=== PATIENT | female | born 1935 | race Caucasian/White ===

== ENCOUNTER 2019-05-06 08:49 | Inpatient (IN) | payer MEDICARE, SELFPAY ==
[2019-05-06] VITALS (11 sets, daily range): BP systolic 98–133; BP diastolic 46–68; PULSE 59–85; RESP 16–20; TEMP 36.5–37.6; O2SAT 78–99
--- NOTE | 2019-05-06 08:51 | ED_ITS ---
Entered by Brian Morrell, acting as scribe for Cristina Monroy DO HPI - General Adult General: Chief complaint: Shortness of Breath/Dyspnea Stated complaint: Short of breath Time Seen by Provider: 05/06/19 09:20 History of Present Illness: HPI narrative: 83 yo female presents shortness of breath. Pt states that she has had a low grade fever start this morning. Daughter states that pt just started all of these symptoms this morning. pt is normally on 2 liters of o2 at all times. Pt didn't have any o2 in the car on the way to the hospital. Pt states that she slept most of the day yesteday. Pt states that her hips are achey. MD complaint: shortness of breath. Onset (ago): day(s) Radiation: non-radiation Severity: mild Relieving factors: none Exacerbating factors: none Associated symptoms: Reports cough, dyspnea, fevers/chills and malaise; Deny chest pain, headache(s), nausea, rash, palpitations, syncope or vomiting Treatments prior to arrival: none Review of Systems Const: Reports: fever, chills, body aches, change in appetite, fatigue and malaise Eyes: Denies: change in vision, blurry vision, blind spots, photophobia, eye discomfort, eye discharge, eye redness, yellow eyes or dry eyes ENMT: Denies: throat pain, uvular edema, enlarged tonsils, painful swallowing, hoarseness, mouth pain, swelling of lips/tongue, oral sores/lesions, dental pain, dry mouth, bad breath or ear pain Card: Denies: chest pain, palpitations, irregular heart rhythm, edema, swelling of feet/ankles, lightheadedness, syncope, pre-syncope, shortness of breath on exertion or shortness of breath when lying down Resp: Reports: shortness of breath and non-productive cough GI: Denies: abdominal pain, nausea, vomiting, vomiting blood, coffee grounds in vomit, difficulty swallowing or heartburn/indigestion : Denies: flank pain, difficulty urinating, painful urination, urinary frequency, urinary urgency, urinary hesitancy or urinary dribbling Musc: Denies: neck pain, back pain, extremity pain or extremity swelling Skin/Breast: Denies: rash, itching, redness, sensitivity to light, skin pain, skin tenderness, skin swelling, sores, new lesion, changing lesion or chronic lesion Neuro: Denies: headache, numbness in extremities, weakness in extremities, changes in sensation, lack of coordination or difficulty walking Psych: Reports: panic attacks; Denies: anxiety, depression, mood swings, sleeping less, sleeping more, hopelessness or loss of interest Endo: Denies: excessive urination Víctor/Lymph: Denies: easy bruising, easy bleeding, petechiae, purpura or tender lymph nodes All/Imm: Denies: hives, throat swelling, tongue swelling, facial swelling or acute wheezing PFSH ED PFSH: Statuses (acute, chronic, etc) shown below reflect problem list status as previously entered and may not be historically accurate Medical History Anxiety (Chronic) Aortic stenosis (Acute) Atrial fibrillation (Acute) Cardiomyopathy (Acute) Chronic back pain (Chronic) CKD (chronic kidney disease), stage IV (Chronic) Congestive heart disease (Acute) ICD (implantable cardioverter-defibrillator) in place (Acute) Macular degeneration (Chronic) Mitral stenosis (Acute) SSS (sick sinus syndrome) (Acute) Surgical History H/O: hysterectomy (Acute) S/P cardiac pacemaker procedure (Acute) S/P cataract surgery (Acute) S/P hernia repair (Acute) S/P small bowel resection (Acute) Status post total knee replacement, right (Acute) Family History Other CAD (coronary artery disease) Cancer Hypertension Stroke Thyroid condition Social History Smoking and tobacco status: never smoked Alcohol intake: former Lives independently: No Household members: children Marital status: / Physical Exam Const: COMMON NORMALS: alert ORIENTATION/CONSCIOUSNESS: Yes oriented to person and Yes oriented to place HENMT: COMMON NORMALS: oral mucous membranes not moist THROAT: no uvular edema Eye: COMMON NORMALS: PERRL GENERAL EYE: normal appearance of both eyes PUPIL: Yes PERRL Lymph: LYMPHATIC: no lymphadenopathy noted Chest: CHEST: No abnormal inspection of the chest Resp: COMMON NORMALS: clear to auscultation bilaterally EFFORT & INSPECTION: Yes able to speak in complete sentences AUSCULTATION: clear to auscultation bilaterally GI: COMMON NORMALS: soft to palpation INSPECTION: Yes normal to inspection PALPATION: Yes soft Neuro: SENSORIUM/ORIENTATION: Yes alert, Yes oriented to person and Yes oriented to place SPEECH: speech normal GAIT: Yes normal gait Course Reevaluation(s): Reevaluation #1: Patient oxygen sat had improved after nebulizer, patient and daughter notifed of lab and cxr results. Patient receiving antibiotic Time: 10:15 Consultations: Consultation #1: Dr Chávez Time: 10:27 Vital Signs: Vital signs: Vital Signs Temperature 99.6 F 05/06/19 08:54 Pulse Rate 69 05/06/19 09:40 Respiratory Rate 18 05/06/19 09:35 Blood Pressure 98/46 05/06/19 09:07 Pulse Oximetry 91 05/06/19 09:35 MDM - General Adult MDM Narrative: Medical decision making narrative: Patient was interviewed with daughter present who acts as caregiver. Patient awoke with fever and didn't sleep well, concerned that she had the flu. She took tylenol prior to arrival. She was hypoxic upon arrival. her portable oxygen was out, she was administered a duoneb and started on oxygen, her sats have been in the 94% range which is normal for her. She wears oxygen 18/10. Her daughter states her mentation is not as keen as normal. Her cbc has an elevated wbc, her cxr shows chf with possible pneumonia and her influenza A is positive. Patient was administered Rocephin 1 G in the ER, her blood cultures were drawn prior to antibiotics. Dr Chávez was consulted Differential Diagnosis: Differential Diagnosis: Pneumonia, Influenza, congestive heart failure Lab Data: Labs: Lab Results 05/06/19 05/06/19 05/06/19 Range/Units 09:03 09:03 09:08 WBC 16.4 H (4.0-10.0) 10^3/ uL RBC 3.50 L (4.1-5.3) 10^6/u L Hgb 11.0 L (11.5-15.3) g/dL Hct 35.2 L (37.0-47.0) % MCV 100.6 H (81-99) fL MCH 31.4 (28.0-34.0) pg MCHC 31.3 (30.0-36.0) g/dL RDW 13.6 (12.1-15.1) % Plt Count 260 (130-400) 10^3/c mm MPV 10.8 H (7.4-10.4) fL Neut % (Auto) 87.6 % Lymph % (Auto) 6.3 % Lee % (Auto) 4.8 % Eos % (Auto) 0.5 % Baso % (Auto) 0.4 % Neut # (Auto) 14.4 H (1.8-7.7) 10^3/u L Lymph # (Auto) 1.0 (0.8-4.8) 10^3/u L Lee # (Auto) 0.8 (0.2-0.9) 10^3/u L Eos # (Auto) 0.1 (0.0-0.8) 10^3/u L Baso # (Auto) 0.1 (0.0-0.1) 10^3/u L Nucleated RBC % (a uto) 0 % Nucleated RBCs # 0.0 /100WBC Sodium 142 (136-145) mmol/L Potassium 3.7 (3.5-5.1) mmol/L Chloride 98 (98-107) mmol/L Carbon Dioxide 32 H (22-29) mmol/L Anion Gap 15.7 (5-19) BUN 28 H (8-23) mg/dL Creatinine 1.6 H (0.5-0.9) mg/dL Glucose 128 H (65-115) mg/dL Calcium 9.3 (8.5-10.5) mg/dL Magnesium 1.8 (1.7-2.3) mg/dL Total Bilirubin 0.9 (0.15-1.2) mg/dL AST 153 H (0-32) U/L ALT 79 H (0-33) U/L Alkaline Phosphata se 152 H (35-105) IU/L NT-Pro-B Natriuret Pep 4459 H (0-450) pg/mL Total Protein 6.8 (6.6-8.7) g/dL Albumin 2.9 L (3.5-5.2) g/dL Globulin 3.9 (1.3-4.6) g/dL Influenza Type A A g Positive H (Negative) POC Influenza B Ag Negative (Negative) Discharge Plan Discharge Patient Disposition: Admitted As Inpatient Condition: Stable Referrals: Dwight Glass MD [Family Provider] - Alexandra Pabon DO [Primary Care Provider] - Coding Level of Care Code ED Printing Pressman for Chg Fwd The documentation recorded by the Petros schmitz Kialy, accurately reflects the service I personally performed and the decisions made by , Cristina Monroy DO
--- NOTE | 2019-05-06 09:00 | XR_ITS ---
WS: [id number] ONE VIEW CHEST HISTORY: 83 years old Female with dyspnea AP upright chest no comparison FINDINGS: Small left and [id number] right pleural effusions. Right greater than left lower lung zone inc reased parenchymal opacity. No pneumothorax. Cardiomegaly and/or pericardial effusion. Pulmonary vasc ular markings unremarkable. Thoracic aorta atherosclerosis. Left chest multi lead cardiac pacing/AICD . Advanced bilateral glenohumeral joint arthrosis. No subdiaphragmatic free air. XR/XR chest 1V portable [id number] IMPRESSION: Findings suggestive of acute CHF/fluid overload. Superimposed bibasilar pneumon ia not excluded. Suggest short-term follow-up PA and lateral chest to confirm r esolution.
[2019-05-06 09:19] LABS: Basophils # 0.1 10^3/uL (0.0-0.1); Basophils % 0.4 %; Eosinophils # 0.1 10^3/uL (0.0-0.8); Eosinophils % 0.5 %; Hematocrit 35.2 % (37.0-47.0); Lymphocytes % 6.3 %; Mean Corpuscular HGB Conc 31.3 g/dL (30.0-36.0); Mean Corpuscular Hemoglobin 31.4 pg (28.0-34.0); Mean Corpuscular Volume 100.6 fL (81-99); Mean Platelet Volume 10.8 fL (7.4-10.4); Monocytes # 0.8 10^3/uL (0.2-0.9); Monocytes % 4.8 %; Neutrophils # 14.4 10^3/uL (1.8-7.7); Neutrophils % 87.6 %; Nucleated Red Blood Cells % 0 %; Platelet Count 260 10^3/cmm (130-400); Red Cell Distribution Width 13.6 % (12.1-15.1); White Blood Count 16.4 10^3/uL (4.0-10.0)
[2019-05-06] MEDS: ipratropium-albuterol 3 mL Neb INHALATION ×2 (09:34→19:49)
[2019-05-06 09:47] LABS: Alanine Aminotransferase 79 U/L (0-33); Albumin Level 2.9 g/dL (3.5-5.2); Alkaline Phosphatase 152 IU/L (35-105); Anion Gap 15.7 (5-19); Aspartate Amino Transferase 153 U/L (0-32); Blood Urea Nitrogen 28 mg/dL (8-23); Calcium 9.3 mg/dL (8.5-10.5); Carbon Dioxide 32 mmol/L (22-29); Chloride 98 mmol/L (98-107); Globulin 3.9 g/dL (1.3-4.6); Glucose 128 mg/dL (65-115); Magnesium 1.8 mg/dL (1.7-2.3); NT Pro B Type Natriuretic Pept 4459 pg/mL (0-450); Potassium 3.7 mmol/L (3.5-5.1); Sodium 142 mmol/L (136-145); Total Bilirubin 0.9 mg/dL (0.15-1.2); Total Protein 6.8 g/dL (6.6-8.7)
[2019-05-06] MEDS: cefTRIAXone 1,000 MG in sodium chloride 0.9% (plus) 50 ML 100 MG IV (09:59)
[2019-05-06] MEDS: sodium chloride 0.9% 500 ML 999 ML IV (09:59)
[2019-05-06 10:20] LABS: Influenza A by IFA Positive (Negative)
[2019-05-06 10:21] LABS: Influenza B by IFA Negative (Negative)
[2019-05-06] MEDS: oseltamivir phosphate 75 mg Capsule PO ×2 (10:39→17:56)
--- NOTE | 2019-05-06 11:30 | ED_ITS ---
HPI - SOB/Dyspnea General: Chief Complaint: Shortness of Breath/Dyspnea Stated Complaint: Short of breath Time Seen by Provider: 05/06/19 09:20 PFSH ED PFSH: Statuses (acute, chronic, etc) shown below reflect problem list status as previously entered and may not be historically accurate Medical History Anxiety (Chronic) Aortic stenosis (Acute) Atrial fibrillation (Acute) Cardiomyopathy (Acute) Chronic back pain (Chronic) CKD (chronic kidney disease), stage IV (Chronic) Congestive heart disease (Acute) ICD (implantable cardioverter-defibrillator) in place (Acute) Macular degeneration (Chronic) Mitral stenosis (Acute) SSS (sick sinus syndrome) (Acute) Surgical History H/O: hysterectomy (Acute) S/P cardiac pacemaker procedure (Acute) S/P cataract surgery (Acute) S/P hernia repair (Acute) S/P small bowel resection (Acute) Status post total knee replacement, right (Acute) Family History Other CAD (coronary artery disease) Cancer Hypertension Stroke Thyroid condition Social History Smoking and tobacco status: never smoked Alcohol intake: former Lives independently: No Household members: children Marital status: / Course Vital Signs: Vital signs: Vital Signs Temperature 99.6 F 05/06/19 08:54 Pulse Rate 69 05/06/19 09:40 Respiratory Rate 18 05/06/19 09:35 Blood Pressure 98/46 05/06/19 09:07 Pulse Oximetry 91 05/06/19 09:35 MDM - SOB/Dyspnea Lab Data: Labs: Lab Results 05/06/19 05/06/19 05/06/19 Range/Units 09:03 09:03 09:08 WBC 16.4 H (4.0-10.0) 10^3/ uL RBC 3.50 L (4.1-5.3) 10^6/u L Hgb 11.0 L (11.5-15.3) g/dL Hct 35.2 L (37.0-47.0) % MCV 100.6 H (81-99) fL MCH 31.4 (28.0-34.0) pg MCHC 31.3 (30.0-36.0) g/dL RDW 13.6 (12.1-15.1) % Plt Count 260 (130-400) 10^3/c mm MPV 10.8 H (7.4-10.4) fL Neut % (Auto) 87.6 % Lymph % (Auto) 6.3 % Pettis % (Auto) 4.8 % Eos % (Auto) 0.5 % Baso % (Auto) 0.4 % Neut # (Auto) 14.4 H (1.8-7.7) 10^3/u L Lymph # (Auto) 1.0 (0.8-4.8) 10^3/u L Pettis # (Auto) 0.8 (0.2-0.9) 10^3/u L Eos # (Auto) 0.1 (0.0-0.8) 10^3/u L Baso # (Auto) 0.1 (0.0-0.1) 10^3/u L Nucleated RBC % (a uto) 0 % Nucleated RBCs # 0.0 /100WBC Sodium 142 (136-145) mmol/L Potassium 3.7 (3.5-5.1) mmol/L Chloride 98 (98-107) mmol/L Carbon Dioxide 32 H (22-29) mmol/L Anion Gap 15.7 (5-19) BUN 28 H (8-23) mg/dL Creatinine 1.6 H (0.5-0.9) mg/dL Glucose 128 H (65-115) mg/dL Calcium 9.3 (8.5-10.5) mg/dL Magnesium 1.8 (1.7-2.3) mg/dL Total Bilirubin 0.9 (0.15-1.2) mg/dL AST 153 H (0-32) U/L ALT 79 H (0-33) U/L Alkaline Phosphata se 152 H (35-105) IU/L NT-Pro-B Natriuret Pep 4459 H (0-450) pg/mL Total Protein 6.8 (6.6-8.7) g/dL Albumin 2.9 L (3.5-5.2) g/dL Globulin 3.9 (1.3-4.6) g/dL Influenza Type A A g Positive H (Negative) POC Influenza B Ag Negative (Negative) Discharge Plan Discharge Patient Disposition: Admitted As Inpatient Condition: Stable Referrals: Dwight Glass MD [Family Provider] - Alexandra Pabon DO [Primary Care Provider] - Coding Level of Care Code ED Compensation And Benefits Advisor for Zohreh Lawson
[2019-05-06] MEDS: FUROsemide 10 mg/mL SDV 4mL 40 MG IVP (14:44)
--- NOTE | 2019-05-06 16:13 | ECG_ITS ---
Measurements Intervals [place] Rate: 69 P: -46 [place]: 165 QRS: 216 QRSD: 186 T: 3 QT: 509 QTc: 548 ELECTRONIC ATRIAL PACEMAKER ELECTRONIC VENTRICULAR PACEMAKER ABNORMAL RHYTHM ECG No previous ECG available for comparison Electronically Signed On 05-06-2019 22:25:51 LICENSING REPRESENTATIVE by Tona Contreras M.D. [email or web address]
--- NOTE | 2019-05-06 16:16 | P.HP_ITS ---
Providers/Chief Complaint Admitting Physician: Debra Chávez MD Primary Care Provider: Alexadnra Pabon DO Chief Complaint: Short of breath History of Present Illness Rosa Garcia is a 83 year old female with PMHx of Chronic CHF (unknown type), Cardiomyopathy s/p ACID, Chronic atrial fibrillation, HTN, Oxygen dependent COPD, WYATT, CKD stage 4; presents from home accompanied by her daughter for evaluation of acutely worsening shortness of breath, generalized weakness and fatigue for approximately 1 day. Patient recently moved in with her daughter was being her primary caregiver seems to be doing well until earlier this morning. Patient is oxygen dependent at baseline and uses 2 L as well as a CPAP machine at night. Daughter thinks that they may be something wrong with her portable oxygen and would like to have this checked as patient was quite short of breath this morning even with having her nasal cannula on. Patient's grandchildren and daughter have been ill with what sounds like an upper respiratory infection. Patient recently moved to the [facility] and has just established care with Dr. Pabon as her primary care provider and Dr. Tripp is a rotary cutter. I am unsure what kind of CHF she has as I do not have a baseline echo to reference though it is documented as diastolic failure. She also has chronic kidney disease stage IV the baseline creatinine is unclear. Patient typically ambulates with a walker at home and uses a wheelchair for lo nger distances. Patient's daughter states that she was so weak this morning she could not even ambulate. Upon evaluation in the ER she was found to have a white count of 16.4, hemoglobin of 11.0, BUN of 28, creatinine of 1.6, elevated LFTs, BNP of 4459. She was found to be influenza A positive. Chest x-ray shows evidence of fluid overload with possible superimposed bibasilar pneumonia. She received a dose of Tamiflu at my request as well as a dose of ceftriaxone and 40 mg of IV Lasix. Vital signs are stable, she is currently requiring 4 L nasal cannula. Patient's daughter at bedside during my assessment and able to provide collateral information, patient is a good historian. She is somewhat ill- appearing and quite frail. Patient and daughter deny any recent falls. Admission is requested for further treatment of pneumonia, influenza as well as IV diuresis. Review of Systems Const: Reports: fatigue; Denies: fever or chills Eyes: Denies: change in vision ENMT: Denies: painful swallowing or dry mouth Card: Denies: chest pain, swelling of feet/ankles or lightheadedness Resp: Reports: non-productive cough (very mild); Denies: shortness of breath GI: Denies: abdominal pain, nausea, vomiting, vomiting blood or blood in stool : Denies: difficulty urinating, painful urination or urinary frequency Musc: Denies: back pain Skin/Breast: Denies: rash Neuro: Reports: weakness in extremities and difficulty walking; Denies: numbness in extremities Psych: Denies: anxiety Medications/Allergies Home Medications Medication Instructions Recorded Confirmed Last Taken Type bumetanide 2 mg PO DAILY 05/06/19 05/06/19 05/06/19 History 6 mg Allergies Allergy/AdvReac Type Severity Reaction Status Date / Time No Known Allergies Allergy Verified 04/11/19 10:46 PFSH Acute PFSH: Statuses (acute, chronic, etc) shown below reflect problem list status as previously entered and may not be historically accurate Medical History Anxiety (Chronic) Aortic stenosis (Acute) Atrial fibrillation (Acute) Cardiomyopathy (Acute) Chronic back pain (Chronic) CKD (chronic kidney disease), stage IV (Chronic) Congestive heart disease (Acute) ICD (implantable cardioverter-defibrillator) in place (Acute) Macular degeneration (Chronic) Mitral stenosis (Acute) SSS (sick sinus syndrome) (Acute) Surgical History H/O: hysterectomy (Acute) S/P cardiac pacemaker procedure (Acute) S/P cataract surgery (Acute) S/P hernia repair (Acute) S/P small bowel resection (Acute) Status post total knee replacement, right (Acute) Family History Other CAD (coronary artery disease) Cancer Hypertension Stroke Thyroid condition Social History Smoking and tobacco status: never smoked Alcohol intake: former Lives independently: No Household members: children Marital status: / Vitals/I&O/Wt Last Vital Signs Temp 98.5 F 05/06/19 15:44 Pulse 69 05/06/19 15:44 Resp 16 05/06/19 15:44 BP 109/64 05/06/19 15:44 Pulse Ox 95 05/06/19 15:44 Physical Exam Const: COMMON NORMALS: no apparent distress and oriented x3 GENERAL APPEARANCE: cooperative, comfortable and frail appearing OR IENTATION/CONSCIOUSNESS: Yes awake OTHER: -somewhat ill appearing HENMT: COMMON NORMALS: normocephalic, head/scalp atraumatic, hearing grossly normal bilaterally and moist oral mucous membranes HEAD & SCALP: normocephalic and atraumatic Eye: COMMON NORMALS: PERRL, EOMs intact bilaterally and conjunctivae normal CONJUNCTIVA: Yes conjunctivae normal PUPIL: Yes PERRL Neck/C-Spine: COMMON NORMALS: full ROM GENERAL: Yes normal visual inspection and Yes trachea midline Resp: COMMON NORMALS: normal respiratory effort, no retractions, no use of accessory muscles and clear to auscultation bilaterally EFFORT & INSPECTION: Yes able to speak in complete sentences, Yes symmetric chest movement and No tachypneic AUSCULTATION: clear to auscultation bilaterally OTHER: - currently on 4 L NC Cardio: COMMON NORMALS: regular rate, regular rhythm, S1 normal heart sound, S2 normal heart sound and no murmurs RATE: regular rate RHYTHM: regular rhythm HEART SOUNDS: S1 normal, S2 normal and murmur systolic GI: COMMON NORMALS: normal to inspection, nondistended, normoactive bowel sounds, soft to palpation and non-tender PALPATION: Yes soft Extremity: COMMON NORMALS: normal to inspection, full ROM and no clubbing, cyanosis or edema; negative for no pedal edema Neuro: COMMON NORMALS: oriented x3, moves all extremities, no focal motor deficits and no sensory deficits noted Psych: COMMON NORMALS: mental status grossly normal, thought process normal, cooperative, affect normal and speech normal SPEECH: Yes normal speech THOUGHT PROCESS: normal thought process Skin: COMMON NORMALS: no rashes or lesions noted, no jaundice, no petechiae and no mottling GENERAL SKIN EXAM: no rashes or lesions noted Data : 05/06/19 09:03 05/06/19 09:03 Micro: Microbiology 05/06/19 09:08 Blood Culture - Preliminary Blood SPECIMEN COLLECTED 05/06/19 09:03 Blood Culture - Preliminary Blood SPECIMEN COLLECTED A&P Assessment and plan (1) Congestive heart disease: -acutely decompensated CHF; unknown type though documented as diastolic; no baseline Echo available as evidenced by shortness of breath, hypoxia, elevated BNP (4459), fluid overload on chest x-ray -Echo ordered -received dose of Lasix in ED; resume Bumex though give as IV for more effective diuresis -daily weights, monitor Is & Os -telemetry monitoring -is on Entresto -hold Coreg due to acute exacaerbation -has established care with Dr. Tripp Status: Acute Qualifiers: Heart failure type: systolic Heart failure chronicity: chronic Qualified Code(s): I50.22 - Chronic systolic (congestive) heart failure Code(s): I50.9 - Heart failure, unspecified (2) Influenza A: -droplet isolation precautions -influenza A positive -started on Tamiflu (day 04/01) Status: Acute Code(s): J10.1 - Influenza due to other identified influenza virus with other respiratory manifestations (3) Pneumonia: -bibasilar pneumonia on CXR; repeat imaging in 24-48 hrs to monitor resolution -received dose of Ceftriaxone in ED; continue this and Azithromycin -noted leukocytosis, afebrile; trend WBC -check lactic acid -Neb treatments -supplemental oxygen as needed Status: Acute Qualifiers: Pneumonia type: due to unspecified organism Laterality: bilateral Lung location: lower lobe of lung Qualified Code(s): J18.9 - Pneumonia, unspecified organism Code(s): J18.9 - Pneumonia, unspecified organism (4) CKD (chronic kidney disease), stage IV: -no clear baseline Cr -monitor renal function particularly with diuresis -avoid nephrotoxins, renally dose meds Status: Chronic Code(s): N18.4 - Chronic kidney disease, stage 4 (severe) Additional A&P Information -Advanced age -HTN -hx of cardiomyopathy, s/p AICD -Chronic atrial fibrillation, on AC with Xarelto; currently rate controlled; resume Amiodarone; hold coreg due to acutely decompensated CHF -Oxygen dependent COPD; 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; with mild acute exacerbation secondary to influenza and pneumonia -WYATT on CPAP qhs -Anxiety/depression; resume citalopram, alprazolam PRN -OA, primarily affecting back, hips, shoulders; resume tramadol -macular degeneration; limited vision bilaterally; recently referred to ophthalmology -strict fall precautions -PT/OT evaluations tomorrow; typically ambulates with walker at home, WC for longer distances; has been quite weak and deconditioned recently -cardiac diet as tolerated; assistance with all meals -GI ppx with PPI -DVT ppx not needed as on Xarelto -Dispo: home; lives with family, seems to have good support -Code status: DNR/DNI; discussed with daughter at bedside Attestations Medical Necessity Statement*: Rosa Garcia's hospital stay will require greater than 2 midnights for IV diuresis as part of management of acutely decompensated CHF, treatment of pneumonia and influenza A, currently on higher than baseline oxygen requirement. Time Spent in Patient Care: Greater than 35 minutes (>than 50% of time spent in counselling and/or direct pt care on unit) . Coding Level of Care Code Acute Chicken Catcher for Zohreh Baed Diagnoses Congestive heart disease I50.22 Heart failure type: systolic Heart failure chronicity: chronic Influenza A J10.1 Pneumonia J18.9 Pneumonia type: due to unspecified organism Laterality: bilateral Lung location: lower lobe of lung CKD (chronic kidney disease), stage IV N18.4
[2019-05-06 17:20] LABS: Lactic Sepsis W/Reflex 1.3 mmol/L (0.5-2.2)
[2019-05-06] MEDS: bumetanide 0.25 mg/mL SDV 10 mL 1 MG IV (17:52)
[2019-05-06] MEDS: sacubitril/valsartan 24-26 mg Tablet 1 EACH PO (17:56)
[2019-05-06] MEDS: azithromycin 500 MG in sodium chloride 0.9% 250 ML 250 MG IV (17:57)
[2019-05-06] MEDS: budesonide 0.5 mg/2 mL Neb INHALATION (19:49)
[2019-05-06] MEDS: ALPRAZolam 0.25 mg Tablet PO (22:37)
[2019-05-07] VITALS (11 sets, daily range): BP systolic 110–143; BP diastolic 51–75; PULSE 58–74; RESP 16–60; TEMP 36.4–37.1; O2SAT 98–100
[2019-05-07] MEDS: bumetanide 0.25 mg/mL SDV 10 mL 1 MG IV ×2 (04:10→17:55)
--- NOTE | 2019-05-07 06:00 | USCV_ITS ---
Jose Rosa Age: 83 Gender: F : 1935 Exam Date: 05/07/2019 09:13 Ordering Phys: Debra Chávez MD Technologist: Dominic Fry [place] [facility] [place]: ? EF CHF BP: 134 / 80 HR: 125 Rhythm: Atrial fibrillation Technical Quality: Adequate MEASUREMENTS (Male / Female) Normal Values 2D ECHO LV Diastolic Diameter PLAX 6.7 cm 4.2 - 5.9 / 3.9 - 5.3 cm LV Systolic Diameter PLAX 5.2 cm IVS Diastolic Thickness 1.3 cm 0.6 - 1.0 / 0.6 - 0.9 cm IVS Systolic Thickness 1.6 cm LVPW Diastolic Thickness 1.3 cm 0.6 - 1.0 / 0.6 - 0.9 cm LVPW Systolic Thickness 1.4 cm LVOT Diameter 2.0 cm LV Ejection Fraction 2D Teich 42.6 % LV Ejection Fraction MOD 2C 66.8 % LV Ejection Fraction 2C AL 66.7 % LA Diameter 5.8 cm LA Width 4.5 cm LA Height 4.8 cm RA Width 4.3 cm RA Height 3.9 cm Aorta at Sinotubular Diameter 2.0 cm M-MODE LV Diastolic Diameter MM 6.6 cm 4.2 - 5.9 / 3.9 - 5.3 cm LV Systolic Diameter MM 4.8 cm LV Ejection Fraction MM Teich 53.6 % IVS Diastolic Thickness MM 1.1 cm 0.6 - 1.0 / 0.6 - 0.9 cm IVS Systolic Thickness MM 1.6 cm LVPW Diastolic Thickness MM 1.2 cm 0.6 - 1.0 / 0.6 - 0.9 cm LVPW Systolic Thickness MM 1.9 cm RV Diastolic Diameter MM 1.6 cm Aortic Annulus Diameter 3.2 cm LA Ao Ratio MM 1.8 MV E Point Septal Separation 1.6 cm DOPPLER AV Peak Velocity 297.0 cm/s LVOT Peak Velocity 83.0 cm/s AV Area Cont Eq vti 0.8 cm squared AV Area Cont Eq pk 0.9 cm squared MV Area PHT 5.0 cm squared Mitral E to A Ratio 2.1 MV E' Velocity 8.0 cm/s Mitral E to MV E' Ratio 12.4 Mitral E to LV E' Lateral Ratio 14.7 Mitral E to LV E' Septal Ratio 10.9 TR Peak Velocity 291.0 cm/s TR Peak Gradient 34.0 mmHg TV Peak E Velocity 134.0 cm/s Right Atrial Pressure 3.0 mmHg Pulmonary Artery Systolic Pressu 36.9 mmHg FINDINGS Left Ventricle Normal left ventricular size and systolic function, EF 64 %. No regional wall motion abnormalities. Right Ventricle Catheter/pacemaker wire in the right ventricular cavity. Right Atrium Catheter/pacemaker wire in the right atrial cavity. Mildly increased right atrial size. Left Atrium Mildly increased left atrial size. Mitral Valve Thickened mitral valve. Moderate mitral annular calcification. Aortic Valve Thickened aortic valve. Tricuspid Valve Mild tricuspid valve regurgitation. Pulmonic Valve Pulmonic valve not well visualized. Pericardium No pericardial effusion. Aorta Normal aortic annulus size. CONCLUSIONS Normal left ventricular size and systolic function, EF 64 %. No regional wall motion abnormalities. Thickened aortic and mitral valves with moderate mitral annular calcification. Mild biatrial enlargement. Pacemaker wire in the right atrium right ventricle. Mild tricuspid valve regurgitation. Estimated pulmonary artery peak systolic pressure of 37 mmHg Technically difficult study because of the poor ultrasonic window. Dr Radha Tripp MD FAC (Electronically Signed) Final Date: 07 May 2019 21:03 S
[2019-05-07 06:38] LABS: Basophils % 0.2 %; Eosinophils # 0.1 10^3/uL (0.0-0.8); Eosinophils % 0.3 %; Hematocrit 27.8 % (37.0-47.0); Hemoglobin 8.9 g/dL (11.5-15.3); Lymphocytes # 1.6 10^3/uL (0.8-4.8); Lymphocytes % 6.4 %; Mean Corpuscular Hemoglobin 32.1 pg (28.0-34.0); Mean Corpuscular Volume 100.4 fL (81-99); Mean Platelet Volume 10.8 fL (7.4-10.4); Monocytes # 1.1 10^3/uL (0.2-0.9); Monocytes % 4.5 %; Neutrophils # 21.6 10^3/uL (1.8-7.7); Neutrophils % 88.1 %; Nucleated Red Blood Cells % 0 %; Platelet Count 232 10^3/cmm (130-400); Red Blood Count 2.77 10^6/uL (4.1-5.3); Red Cell Distribution Width 13.9 % (12.1-15.1); White Blood Count 24.5 10^3/uL (4.0-10.0)
[2019-05-07 07:06] LABS: Alanine Aminotransferase 207 U/L (0-33); Alkaline Phosphatase 121 IU/L (35-105); Aspartate Amino Transferase 338 U/L (0-32); Blood Urea Nitrogen 32 mg/dL (8-23); Calcium 8.5 mg/dL (8.5-10.5); Carbon Dioxide 32 mmol/L (22-29); Chloride 101 mmol/L (98-107); Glucose 96 mg/dL (65-115); Sodium 144 mmol/L (136-145); Total Bilirubin 0.6 mg/dL (0.15-1.2)
[2019-05-07] MEDS: ipratropium-albuterol 3 mL Neb INHALATION ×2 (07:35→19:47)
[2019-05-07] MEDS: budesonide 0.5 mg/2 mL Neb INHALATION ×2 (07:35→19:47)
[2019-05-07] MEDS: sacubitril/valsartan 24-26 mg Tablet 1 EACH PO ×2 (08:46→17:48)
[2019-05-07] MEDS: oxybutynin chloride XL 5 MG TABLET PO (08:46)
[2019-05-07] MEDS: oseltamivir phosphate 75 mg Capsule PO ×2 (08:47→17:49)
[2019-05-07] MEDS: pantoprazole DR 40 mg Tablet PO (08:48)
[2019-05-07] MEDS: rivaroxaban 10 mg Tablet 15 MG PO (08:48)
[2019-05-07] MEDS: citalopram 20 mg Tablet 10 MG PO (08:49)
[2019-05-07] MEDS: amiodarone 200 mg Tablet PO (08:49)
--- NOTE | 2019-05-07 08:54 | PM.PN ---
Subjective Subjective: Interval history: AM labs noted, worsening leukocytosis and renal function. Noted QTc prolongation so will stop Azithromycin and start on Zosyn. Replace K. I am unsure of her urine output overnight as none documented. Has voided once so far today. Worked well with PT. Seems quite fatigued from session, resting in bed. Medications: Reviewed: Yes Medication Review Details: Current Medications Generic Name Dose Route Start Last Admin Trade Name Freq PRN Reason Stop Dose Admin Albuterol/Ipratrop ium 3 ml 05/06/19 13:52 05/07/19 07:35 Duoneb INHALATION 3 ml Q6H PRN Administration SHORTNESS OF FILIPPO TH Alprazolam 0.25 mg 05/06/19 21:00 05/06/19 22:37 Xanax PO 0.25 mg BEDTIME NEISHA Administration Amiodarone HCl 200 mg 05/07/19 09:00 05/07/19 08:49 Cordarone PO 200 mg DAILY NEISHA Administration Budesonide 0.5 mg 05/06/19 20:00 05/07/19 07:35 Pulmicort INHALATION 0.5 mg BID.RESPIRATORY S CH Administration Bumetanide 1 mg 05/06/19 17:00 05/07/19 04:10 Bumex IV 1 mg Q12H NEISHA Administration Citalopram Hydrobr omide 10 mg 05/07/19 09:00 05/07/19 08:49 Celexa PO 10 mg DAILY NEISHA Administration Oseltamivir Phosph ate 75 mg 05/06/19 18:00 05/07/19 08:47 Tamiflu PO 75 mg BID NEISHA Administration Oxybutynin Chlorid e 5 mg 05/07/19 09:00 05/07/19 08:46 Ditropan Xl PO 5 mg DAILY NEISHA Administration Pantoprazole Sodiu m 40 mg 05/07/19 09:00 05/07/19 08:48 Protonix PO 40 mg DAILY NEISHA Administration Vitals/I&O/Wt Last Vital Signs Temp 97.5 F L 05/07/19 08:00 Pulse 74 05/07/19 08:00 Resp 18 05/07/19 08:00 BP 125/75 05/07/19 08:00 Pulse Ox 98 05/07/19 08:00 05/06/19 05/07/19 05/07/19 22:59 06:59 14:59 Intake Total 120 / 120 75 / 195 Output Total 0 / 0 Balance 120 / 120 75 / 195 Weight last 48 hrs Weight 81.102 kg Physical Exam Const: COMMON NORMALS: no apparent distress and oriented x3 GENERAL APPEARANCE: cooperative, comfortable and frail appearing (and fatigued) ORIENTATION/CONSCIOUSNESS: Yes awake OTHER: -somewhat ill appearing HENMT: COMMON NORMALS: normocephalic, head/scalp atraumatic, hearing grossly normal bilaterally and moist oral mucous membranes HEAD & SCALP: normocephalic and atraumatic Eye: COMMON NORMALS: PERRL, EOMs intact bilaterally and conjunctivae normal CONJUNCTIVA: Yes conjunctivae normal PUPIL: Yes PERRL Neck/C-Spine: COMMON NORMALS: full ROM GENERAL: Yes normal visual inspection and Yes trachea midline Resp: COMMON NORMALS: normal respiratory effort, no retractions, no use of accessory muscles and clear to auscultation bilaterally EFFORT & INSPECTION: Yes able to speak in complete sentences, Yes symmetric chest movement and No tachypneic AUSCULTATION: clear to auscultation bilaterally OTHER: -currently on 4 L NC Cardio: COMMON NORMALS: regular rate, regular rhythm, S1 normal heart sound, S2 normal heart sound and no murmurs RATE: regular rate RHYTHM: regular rhythm HEART SOUNDS: S1 normal, S2 normal and murmur systolic GI: COMMON NORMALS: normal to inspection, nondistended, normoactive bowel sounds, soft to palpation and non-tender PALPATION: Yes soft Extremity: COMMON NORMALS: normal to inspection and full ROM; negative for no pedal edema OTHER: -noted 1+ pitting edema of bilateral LE, non-pitting edema around both ankles Neuro: COMMON NORMALS: oriented x3, moves all extremities, no focal motor deficits and no sensory deficits noted Psych: COMMON NORMALS: mental status grossly normal, thought process normal, cooperative, affect normal and speech normal SPEECH: Yes normal speech THOUGHT PROCESS: normal thought process Skin: COMMON NORMALS: no rashes or lesions noted, no jaundice, no petechiae and no mottling GENERAL SKIN EXAM: no rashes or lesions noted Data : 05/07/19 06:07 05/07/19 06:07 Micro: Microbiology 05/06/19 09:08 Blood Culture - Preliminary Blood SPECIMEN COLLECTED 05/06/19 09:03 Blood Culture - Preliminary Blood SPECIMEN COLLECTED A&P Assessment and plan (1) Congestive heart disease: -acutely decompensated CHF; unknown type though documented as diastolic; no baseline Echo available as evidenced by shortness of breath, hypoxia, elevated BNP (4459), fluid overload on chest x-ray -Echo ordered -received dose of Lasix in ED; on IV Bumex -daily weights, monitor Is & Os -telemetry monitoring -is on Entresto -hold Coreg due to acute exacaerbation -has established care with Dr. Tripp Status: Acute Qualifiers: Heart failure chronicity: chronic Heart failure type: systolic Qualified Code(s): I50.22 - Chronic systolic (congestive) heart failure Code(s): I50.9 - Heart failure, unspecified (2) Influenza A: -droplet isolation precautions -influenza A positive -started on Tamiflu (day 2/5) Status: Acute Code(s): J10.1 - Influenza due to other identified influenza virus with other respiratory manifestations (3) Pneumonia: -bibasilar pneumonia on CXR; repeat imaging in 24-48 hrs to monitor resolution -received dose of Ceftriaxone in ED; and dose of Azithromycin; discontinue this due to prolonged QTc. Will start on Zosyn -noted increased leukocytosis, afebrile; continue to trend WBC -lactic acid-1.3 -Neb treatments -supplemental oxygen as needed Status: Acute Qualifiers: Laterality: bilateral Lung location: lower lobe of lung Pneumonia type: due to unspecified organism Qualified Code(s): J18.9 - Pneumonia, unspecified organism Code(s): J18.9 - Pneumonia, unspecified organism (4) CKD (chronic kidney disease), stage IV: -no clear baseline Cr -continue to monitor renal function particularly with diuresis -avoid nephrotoxins, renally dose meds Status: Chronic Code(s): N18.4 - Chronic kidney disease, stage 4 (severe) Additional A&P Information -Advanced age -HTN -hx of cardiomyopathy, s/p AICD -Chronic atrial fibrillation, on AC with Xarelto; currently rate controlled; d/c Amiodarone; hold coreg due to acutely decompensated CHF -Oxygen dependent COPD; 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; with mild acute exacerbation secondary to influenza and pneumonia -WYATT on CPAP qhs -Anxiety/depression; on citalopram, alprazolam PRN -OA, primarily affecting back, hips, shoulders; continue tramadol -macular degeneration; limited vision bilaterally; recently referred to ophthalmology -elevated LFTs; continue to trend; stop Amiodarone -strict fall precautions -PT/OT evaluations today; typically ambulates with walker at home, WC for longer distances; has been quite weak and deconditioned recently -cardiac diet as tolerated; assistance with all meals -GI ppx with PPI -DVT ppx not needed as on Xarelto -Dispo: home with home health ([facility]); lives with family, seems to have good support -Code status: DNR/DNI; discussed with daughter at bedside Attestations Medical Necessity Statement*: Patient requires hospitalization for continued IV diuresis, IV antibiotics for CHF exacerbation and pneumonia respectively. Time Spent in Patient Care: Greater than 35 minutes (>than 50% of time spent in counselling and/or direct pt care on unit). 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
[2019-05-07] MEDS: piperacillin-tazobactam 3.375 GM in sodium chloride 0.9% (plus) 50 ML IV ×2 (10:39→17:50)
--- NOTE | 2019-05-07 10:45 | PC.CHAP ---
Pastoral Care Encounter/Spiritual Assessment Type of Contact [] Declined cow tender visit [] Patient/Family/Request visit [] Outpatient visit [] Follow-up visit [] Physician referral [] Code/Alert [] Routine visit [] Staff referral [] Actively dying [] Patient sleeping [] Family support [] [] Out of room [] Palliative care [] [] Receiving care in room [] Pre-surgical visit [] Trauma [] Long length of stay [] ICU visit [x] Other: No visit due to isolation precautions Relational/Emotional Strength [] Patient feels connected with others/family/visitors/staff [] Distress [] Loneliness/isolation [] Abandonment Spirituality of Patient [] Person of Genie [] Attends Cheondoism of their Genie [] Believes in Prayer [] Reads Bible or Zoroastrian materials [] There are Spiritual issues to be addressed [employer] Interventions [] Prayer [] Active listening [] Non-anxious presence [] Spiritual/emotional support [] Crisis/trauma care [] Spiritual counseling [] Bereavement support [] Provided bereavement packet [] Provided Bible/devotional materials [] Provided toy/stuffed animal, coloring book to patient or family member [] Provided Communion [] Anointing/Holmen [] Salvation [] Completed spiritual assessment [] Other: Impact on Illness or Injury [] Angry [] Fearful [] Anxious [] Often cries [] Exhaustion [] Unable to work [] Unable to attend roman catholic [] Unable to walk/stand [] Unable to read [] Unable to drive [] Unable to eat/drink [] Unable to sleep [] Unable to be with family [] Patient intubated [] Other: Summary Isolation precautions No visit Director Of It [employer] Joseline Tolliver Time spent with patient 2 minutes
--- NOTE | 2019-05-07 11:43 | PC.RESP ---
Patient given information on Pulmonary Rehab.
[2019-05-07] MEDS: acetaminophen 325 mg Tablet 650 MG PO (18:03)
--- NOTE | 2019-05-07 18:11 | PC.OT ---
OT note: Attempted OT evaluation. Patient requested to hold until tomorrow due to fatigue, and not feeling well or up to it at this time. Will attempt again tomorrow.
[2019-05-07] MEDS: ALPRAZolam 0.25 mg Tablet PO (21:27)
[2019-05-07] MEDS: TRAMadol 50 mg Tablet PO (21:35)
[2019-05-08] VITALS (10 sets, daily range): BP systolic 159–185; BP diastolic 75–96; PULSE 67–83; RESP 16–20; TEMP 36.5–36.8; O2SAT 94–100
[2019-05-08] MEDS: piperacillin-tazobactam 3.375 GM in sodium chloride 0.9% (plus) 50 ML IV ×3 (02:29→20:42)
[2019-05-08] MEDS: bumetanide 0.25 mg/mL SDV 10 mL 1 MG IV ×2 (05:39→17:19)
[2019-05-08 06:34] LABS: Basophils % 0.2 %; Eosinophils # 0.2 10^3/uL (0.0-0.8); Eosinophils % 1.5 %; Lymphocytes # 1.6 10^3/uL (0.8-4.8); Lymphocytes % 12.2 %; Mean Corpuscular HGB Conc 31.3 g/dL (30.0-36.0); Mean Corpuscular Hemoglobin 31.9 pg (28.0-34.0); Mean Corpuscular Volume 102.2 fL (81-99); Mean Platelet Volume 11.3 fL (7.4-10.4); Monocytes % 7.6 %; Neutrophils # 9.9 10^3/uL (1.8-7.7); Neutrophils % 78.1 %; Nucleated Red Blood Cells % 0 %; Platelet Count 253 10^3/cmm (130-400); Red Blood Count 3.13 10^6/uL (4.1-5.3); Red Cell Distribution Width 14.1 % (12.1-15.1); White Blood Count 12.7 10^3/uL (4.0-10.0)
[2019-05-08 06:55] LABS: Alanine Aminotransferase 179 U/L (0-33); Albumin Level 2.3 g/dL (3.5-5.2); Alkaline Phosphatase 131 IU/L (35-105); Anion Gap 16.5 (5-19); Aspartate Amino Transferase 181 U/L (0-32); Blood Urea Nitrogen 31 mg/dL (8-23); Calcium 8.9 mg/dL (8.5-10.5); Carbon Dioxide 31 mmol/L (22-29); Chloride 102 mmol/L (98-107); Globulin 3.8 g/dL (1.3-4.6); Glucose 83 mg/dL (65-115); Potassium 3.5 mmol/L (3.5-5.1); Sodium 146 mmol/L (136-145); Total Bilirubin 0.6 mg/dL (0.15-1.2); Total Protein 6.1 g/dL (6.6-8.7)
[2019-05-08] MEDS: budesonide 0.5 mg/2 mL Neb INHALATION ×2 (07:15→21:45)
[2019-05-08] MEDS: ipratropium-albuterol 3 mL Neb INHALATION ×2 (07:15→21:46)
[2019-05-08] MEDS: citalopram 20 mg Tablet 10 MG PO (08:10)
[2019-05-08] MEDS: pantoprazole DR 40 mg Tablet PO (08:10)
[2019-05-08] MEDS: oseltamivir phosphate 75 mg Capsule PO ×2 (08:10→17:18)
[2019-05-08] MEDS: rivaroxaban 10 mg Tablet 15 MG PO (08:11)
[2019-05-08] MEDS: oxybutynin chloride XL 5 MG TABLET PO (08:11)
[2019-05-08] MEDS: TRAMadol 50 mg Tablet PO ×2 (08:11→20:43)
--- NOTE | 2019-05-08 09:27 | XR_ITS ---
WS: [id number] Portable AP upright chest, 05/08/2019 Clinical Data: chf exac Comparison: Portable chest, 05/06/2019 Findings: Bilateral pleural effusions are seen. There is patchy atelectasis or minimal pneumonia in t he lateral aspect of the left lower lobe which has appeared. The permanent generator and multiple car diac leads are in good position and unchanged. The right upper lobe is clear. The heart size is not c hanged. The aortic arch and descending aorta are tortuous. Severe osteoarthritic change of both shoul ders is noted. The pulmonary vascularity is not increased. XR/XR chest 1V portable [id number] Impression: 1. Development of mild patchy atelectasis or minimal pneumonia in lateral aspec t the left lower lobe. 2. No change in bilateral pleural effusions, atherosclerosis, permanent pacemak er and osteoarthritis of both shoulders.
--- NOTE | 2019-05-08 09:43 | P.PN_ITS ---
Subjective Subjective: Interval history: AM labs noted, decreasing leukocytosis, improving LFTs and renal function. Repeat chest x-ray today. Patient seen and examined, daughter in the room as well as PT. Willing to participate in therapy, is in good spirits, has voided several times in the bedside commode with daughter's help so Is & Os not accurate. Repeat CXR unchanged. Medications: Reviewed: Yes Medication Review Details: Current Medications Generic Name Dose Route Start Last Admin Trade Name Freq PRN Reason Stop Dose Admin Acetaminophen 650 mg 05/06/19 13:52 05/07/19 18:03 Tylenol PO 650 mg Q6H PRN Administration Mild/Mod Pain Or Temp >/= 101 Albuterol/Ipratrop ium 3 ml 05/06/19 13:52 05/08/19 07:15 Duoneb INHALATION 3 ml Q6H PRN Administration SHORTNESS OF FILIPPO TH Alprazolam 0.25 mg 05/06/19 21:00 05/07/19 21:27 Xanax PO 0.25 mg BEDTIME NEISHA Administration Budesonide 0.5 mg 05/06/19 20:00 05/08/19 07:15 Pulmicort INHALATION 0.5 mg BID.RESPIRATORY S CH Administration Bumetanide 1 mg 05/06/19 17:00 05/08/19 05:39 Bumex IV 1 mg Q12H NEISHA Administration Citalopram Hydrobr omide 10 mg 05/07/19 09:00 05/08/19 08:10 Celexa PO 10 mg DAILY NEISHA Administration Piperacillin Sod/T azobactam 50 mls @ 12.5 mls /hr 05/07/19 10:00 05/08/19 02:29 Sod 3.375 gm/ So dium Chloride IV 12.5 mls/hr Q8H NEISHA Administration Protocol Oseltamivir Phosph ate 75 mg 05/06/19 18:00 05/08/19 08:10 Tamiflu PO 75 mg BID NEISHA Administration Oxybutynin Chlorid e 5 mg 05/07/19 09:00 05/08/19 08:11 Ditropan Xl PO 5 mg DAILY NEISHA Administration Pantoprazole Sodiu m 40 mg 05/07/19 09:00 05/08/19 08:10 Protonix PO 40 mg DAILY NEISHA Administration Tramadol HCl 50 mg 05/06/19 16:22 05/08/19 08:11 Ultram PO 50 mg Q6H PRN Administration MODERATE PAIN Vitals/I&O/Wt Last Vital Signs Temp 98.1 F 05/08/19 07:57 Pulse 70 05/08/19 07:57 Resp 20 H 05/08/19 07:57 BP 159/87 05/08/19 04:00 Pulse Ox 100 05/08/19 07:57 05/07/19 05/08/19 05/08/19 22:59 06:59 14:59 Intake Total 170 / 460 75 / 535 Balance 170 / 460 75 / 535 Weight last 48 hrs Weight 81.25 kg Weight 81.102 kg Physical Exam Const: COMMON NORMALS: no apparent distress and oriented x3 GENERAL APPEARANCE: cooperative, comfortable and frail appearing; not ill appearing ORIENTATION/CONSCIOUSNESS: Yes awake HENMT: COMMON NORMALS: normocephalic, head/scalp atraumatic, hearing grossly normal bilaterally and moist oral mucous membranes HEAD & SCALP: normocephalic and atraumatic Eye: COMMON NORMALS: PERRL, EOMs intact bilaterally and conjunctivae normal CONJUNCTIVA: Yes conjunctivae normal PUPIL: Yes PERRL Neck/C-Spine: COMMON NORMALS: full ROM GENERAL: Yes normal visual inspection and Yes trachea midline Resp: COMMON NORMALS: normal respiratory effort, no retractions, no use of accessory muscles and clear to auscultation bilaterally EFFORT & INSPECTION: Yes able to speak in complete sentences, Yes symmetric chest movement and No tachypneic AUSCULTATION: clear to auscultation bilaterally OTHER: - currently on 3 L NC Cardio: COMMON NORMALS: regular rate, regular rhythm, S1 normal heart sound, S2 normal heart sound and no murmurs RATE: regular rate RHYTHM: regular rhythm HEART SOUNDS: S1 normal, S2 normal and murmur systolic GI: COMMON NORMALS: normal to inspection, nondistended, normoactive bowel sounds, soft to palpation and non-tender PALPATION: Yes soft Extremity: COMMON NORMALS: normal to inspection and full ROM; negative for no pedal edema OTHER: -noted trace pitting edema of bilateral LE, non-pitting edema around both ankles Neuro: COMMON NORMALS: oriented x3, moves all extremities, no focal motor deficits and no sensory deficits noted Psych: COMMON NORMALS: mental status grossly normal, thought process normal, cooperative, affect normal and speech normal SPEECH: Yes normal speech THOUGHT PROCESS: normal thought process Skin: COMMON NORMALS: no rashes or lesions noted, no jaundice, no petechiae and no mottling GENERAL SKIN EXAM: no rashes or lesions noted Data : 05/08/19 05:48 05/08/19 05:48 Micro: Microbiology 05/06/19 09:08 Blood Culture - Preliminary Blood NEGATIVE TO DATE 05/06/19 09:03 Blood Culture - Preliminary Blood NEGATIVE TO DATE A&P Assessment and plan (1) Congestive heart disease: -acutely decompensated CHF; unknown type though documented as diastolic; no baseline Echo available as evidenced by shortness of breath, hypoxia, elev ated BNP (4459), fluid overload on chest x-ray -Echo: EF=64%, no RWMA, mild TR -received dose of Lasix in ED; on IV Bumex -daily weights, monitor Is & Os -telemetry monitoring -is on Entresto -hold Coreg due to acute exacaerbation -has established care with Dr. Tripp Status: Acute Qualifiers: Heart failure chronicity: chronic Heart failure type: systolic Qualified Code(s): I50.22 - Chronic systolic (congestive) heart failure Code(s): I50.9 - Heart failure, unspecified (2) Influenza A: -droplet isolation precautions -influenza A positive -started on Tamiflu (day 3/5) Status: Acute Code(s): J10.1 - Influenza due to other identified influenza virus with other respiratory manifestations (3) Pneumonia: -bibasilar pneumonia on CXR; repeat imaging today to monitor resolution -on Zosyn -noted decreased leukocytosis, afebrile; continue to trend WBC -lactic acid-1.3 -Neb treatments -supplemental oxygen as needed Status: Acute Qualifiers: Laterality: bilateral Lung location: lower lobe of lung Pneumonia type: due to unspecified organism Qualified Code(s): J18.9 - Pneumonia, unspe cified organism Code(s): J18.9 - Pneumonia, unspecified organism (4) CKD (chronic kidney disease), stage IV: -no clear baseline Cr -continue to monitor renal function particularly with diuresis -avoid nephrotoxins, renally dose meds Status: Chronic Code(s): N18.4 - Chronic kidney disease, stage 4 (severe) Additional A&P Information -Advanced age -HTN -hx of cardiomyopathy, s/p AICD -Chronic atrial fibrillation, on AC with Xarelto; currently rate controlled; d/c Amiodarone; hold coreg due to acutely decompensated CHF -Oxygen dependent COPD; 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; with mild acute exacerbation secondary to influenza and pneumonia -WYATT on CPAP qhs -Anxiety/depression; on citalopram, alprazolam PRN -OA, primarily affecting back, hips, shoulders; continue tramadol -macular degeneration; limited vision bilaterally; recently referred to ophthalmology -elevated LFTs; continue to trend; stop Amiodarone; LFTs improving after discontinuation of Amiodarone -strict fall precautions -PT/OT evaluations; typically ambulates with walker at home, WC for longer distances; has been quite weak and deconditioned recently -cardiac diet as tolerated; assistance with all meals -GI ppx with PPI -DVT ppx not needed as on Xarelto -Dispo: home with home health ([facility]); lives with family, seems to have good support -Code status: DNR/DNI; discussed with daughter at bedside Attestations Medical Necessity Statement*: Patient requires hospitalization for continued treatment of influenza, pneumonia on IV antibiotics, and continued IV diuresis. Time Spent in Patient Care: Greater than 35 minutes (>than 50% of time spent in counselling and/or direct pt care on unit) . 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
[2019-05-08] MEDS: ALPRAZolam 0.25 mg Tablet PO (20:43)
[2019-05-09] VITALS (12 sets, daily range): BP systolic 121–170; BP diastolic 45–78; PULSE 62–92; RESP 16–18; TEMP 36.4–36.6; O2SAT 94–99
[2019-05-09] MEDS: piperacillin-tazobactam 3.375 GM in sodium chloride 0.9% (plus) 50 ML IV ×3 (05:33→21:04)
[2019-05-09] MEDS: bumetanide 0.25 mg/mL SDV 10 mL 1 MG IV (05:33)
[2019-05-09 06:03] LABS: Basophils % 0.3 %; Eosinophils # 0.2 10^3/uL (0.0-0.8); Eosinophils % 2.7 %; Hematocrit 26.9 % (37.0-47.0); Hemoglobin 8.8 g/dL (11.5-15.3); Lymphocytes # 1.4 10^3/uL (0.8-4.8); Lymphocytes % 19.1 %; Mean Corpuscular HGB Conc 32.7 g/dL (30.0-36.0); Mean Corpuscular Hemoglobin 31.4 pg (28.0-34.0); Mean Corpuscular Volume 96.1 fL (81-99); Mean Platelet Volume 11.9 fL (7.4-10.4); Monocytes # 0.7 10^3/uL (0.2-0.9); Monocytes % 9.9 %; Neutrophils # 4.8 10^3/uL (1.8-7.7); Neutrophils % 67.7 %; Nucleated Red Blood Cells % 0.6 %; Platelet Count 220 10^3/cmm (130-400); Red Cell Distribution Width 13.4 % (12.1-15.1); White Blood Count 7.1 10^3/uL (4.0-10.0)
[2019-05-09 07:23] LABS: Anion Gap 23.6 (5-19); Blood Urea Nitrogen 26 mg/dL (8-23); Calcium 8.7 mg/dL (8.5-10.5); Carbon Dioxide 26 mmol/L (22-29); Chloride 100 mmol/L (98-107); Glucose 89 mg/dL (65-115); Osmolality Calculated 298 mOsm/kg (285-295); Potassium 3.6 mmol/L (3.5-5.1); Sodium 146 mmol/L (136-145)
[2019-05-09] MEDS: rivaroxaban 10 mg Tablet 15 MG PO (08:46)
[2019-05-09] MEDS: citalopram 20 mg Tablet 10 MG PO (08:47)
[2019-05-09] MEDS: oseltamivir phosphate 75 mg Capsule PO ×2 (08:47→18:05)
[2019-05-09] MEDS: pantoprazole DR 40 mg Tablet PO (08:47)
[2019-05-09] MEDS: oxybutynin chloride XL 5 MG TABLET PO (08:48)
--- NOTE | 2019-05-09 09:55 | P.PN_ITS ---
Subjective Subjective: Interval history: AM labs noted, resolved leukocytosis. Had 600 mL urine output overnight. Has continued to have good output today, daughter has been assisting her to/from the bedside commode, has been more ambulatory in the room as well. Reports feeling that she needs to have a bowel movement but has not had one yet though she did have a large BM yesterday. Medications: Reviewed: Yes Medication Review Details: Current Medications Generic Name Dose Route Start Last Admin Trade Name Freq PRN Reason Stop Dose Admin Acetaminophen 650 mg 05/06/19 13:52 05/07/19 18:03 Tylenol PO 650 mg Q6H PRN Administration Mild/Mod Pain Or Temp >/= 101 Albuterol/Ipratrop ium 3 ml 05/06/19 13:52 05/08/19 21:46 Duoneb INHALATION 3 ml Q6H PRN Administration SHORTNESS OF FILIPPO TH Alprazolam 0.25 mg 05/06/19 21:00 05/08/19 20:43 Xanax PO 0.25 mg BEDTIME NEISHA Administration Budesonide 0.5 mg 05/06/19 20:00 05/08/19 21:45 Pulmicort INHALATION 0.5 mg BID.RESPIRATORY S CH Administration Bumetanide 1 mg 05/06/19 17:00 05/09/19 05:33 Bumex IV 1 mg Q12H NEISHA Administration Citalopram Hydrobr omide 10 mg 05/07/19 09:00 05/09/19 08:47 Celexa PO 10 mg DAILY NEISHA Administration Piperacillin Sod/T azobactam 50 mls @ 12.5 mls /hr 05/07/19 10:00 05/09/19 05:33 Sod 3.375 gm/ So dium Chloride IV 12.5 mls/hr Q8H NEISHA Administration Protocol Non-Formulary 1 each 05/08/19 18:00 05/08/19 17:18 Medication (Entres to PO 1 each 97-103 Mg) BID NEISHA Administration Oseltamivir Phosph ate 75 mg 05/06/19 18:00 05/09/19 08:47 Tamiflu PO 75 mg BID NEISHA Administration Oxybutynin Chlorid e 5 mg 05/07/19 09:00 05/09/19 08:48 Ditropan Xl PO 5 mg DAILY NEISHA Administration Pantoprazole Sodiu m 40 mg 05/07/19 09:00 05/09/19 08:47 Protonix PO 40 mg DAILY NEISHA Administration Tramadol HCl 50 mg 05/06/19 16:22 05/08/19 20:43 Ultram PO 50 mg Q6H PRN Administration MODERATE PAIN Vitals/I&O/Wt Last Vital Signs Temp 97.5 F L 05/09/19 08:00 Pulse 75 05/09/19 08:00 Resp 18 05/09/19 08:00 BP 161/70 05/09/19 08:00 Pulse Ox 97 05/09/19 08:00 05/08/19 05/09/19 05/09/19 22:59 06:59 14:59 Intake Total 150 / 390 650 / 1040 Output Total 500 / 500 100 / 100 Balance 150 / 390 150 / 540 -100 / -100 Weight last 48 hrs Weight 81.25 kg Physical Exam Const: COMMON NORMALS: no apparent distress and oriented x3 GENERAL APPEARANCE: cooperative, comfortable and frail appearing; not ill appearing ORIENTATION/CONSCIOUSNESS: Yes awake HENMT: COMMON NORMALS: normocephalic, head/scalp atraumatic, hearing grossly normal bilaterally and moist oral mucous membranes HEAD & SCALP: normocephalic and atraumatic Eye: COMMON NORMALS: PERRL, EOMs intact bilaterally and conjunctivae normal CONJUNCTIVA: Yes conjunctivae normal PUPIL: Yes PERRL Neck/C-Spine: COMMON NORMALS: full ROM GENERAL: Yes normal visual inspection and Yes trachea midline Resp: COMMON NORMALS: normal respiratory effort, no retractions, no use of accessory muscles and clear to auscultation bilaterally EFFORT & INSPECTION: Yes able to speak in complete sentences, Yes symmetric chest movement and No tachypneic AUSCULTATION: clear to auscultation bilaterally OTHER: - currently on 3 L NC Cardio: COMMON NORMALS: regular rate, regular rhythm, S1 normal heart sound, S2 normal heart sound and no murmurs RATE: regular rate RHYTHM: regular rhythm HEART SOUNDS: S1 normal, S2 normal and murmur systolic GI: COMMON NORMALS: normal to inspection, nondistended, normoactive bowel sounds, soft to palpation and non-tender PALPATION: Yes soft Extremity: COMMON NORMALS: normal to inspection and full ROM; negative for no pedal edema OTHER: -noted trace pitting edema of bilateral LE, non-pitting edema around both ankles Neuro: COMMON NORMALS: oriented x3, moves all extremities, no focal motor deficits and no sensory deficits noted Psych: COMMON NORMALS: mental status grossly normal, thought process normal, cooperative, affect normal and speech normal SPEECH: Yes normal speech THOUGHT PROCESS: normal thought process Skin: COMMON NORMALS: no rashes or lesions noted, no jaundice, no petechiae and no mottling GENERAL SKIN EXAM: no rashes or lesions noted Data : 05/09/19 05:13 05/09/19 05:13 A&P Assessment and plan (1) Congestive heart disease: -acutely decompensated CHF; unknown type though documented as diastolic; no baseline Echo available as evidenced by shortness of breath, hypoxia, maria de jesus vated BNP (9779), fluid overload on chest x-ray -Echo: EF=64%, no RWMA, mild TR -received dose of Lasix in ED; on IV Bumex -daily weights, monitor Is & Os -telemetry monitoring -is on Entresto -hold Coreg due to acute exacaerbation -has established care with Dr. Tripp Status: Acute Qualifiers: Heart failure chronicity: chronic Heart failure type: systolic Qualified Code(s): I50.22 - Chronic systolic (congestive) heart failure Code(s): I50.9 - Heart failure, unspecified (2) Influenza A: -droplet isolation precautions -influenza A positive -on Tamiflu (day 4/5) Status: Acute Code(s): J10.1 - Influenza due to other identified influenza virus with other respiratory manifestations (3) Pneumonia: -bibasilar pneumonia on CXR; repeat imaging unchanged -on Zosyn -noted resolved leukocytosis, afebrile -lactic acid-1.3 -Neb treatments -supplemental oxygen as needed Status: Acute Qualifiers: Laterality: bilateral Lung location: lower lobe of lung Pneumonia type: due to unspecified organism Qualified Code(s): J18.9 - Pneumonia, unspecified organism Code(s): J18.9 - Pneumonia, unspecified organism (4) CKD (chronic kidney disease), stage IV: -no clear baseline Cr -continue to monitor renal function particularly with diuresis; stable -avoid nephrotoxins, renally dose meds Status: Chronic Code(s): N18.4 - Chronic kidney disease, stage 4 (severe) Additional A&P Information -Advanced age -HTN -hx of cardiomyopathy, s/p AICD -Chronic atrial fibrillation, on AC with Xarelto; currently rate controlled; d/c Amiodarone; hold coreg due to acutely decompensated CHF -Oxygen dependent COPD; 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; with mild acute exacerbation secondary to influenza and pneumonia -WYATT on CPAP qhs -Anxiety/depression; on citalopram, alprazolam PRN -OA, primarily affecting back, hips, shoulders; continue tramadol -macular degeneration; limited vision bilaterally; recently referred to ophthalmology -elevated LFTs; continue to trend; stop Amiodarone; LFTs improving after discontinuation of Amiodarone -hx of iron deficiency anemia; no clear baseline Hg but has been 8-10 during her hospital stay; will order iron levels -strict fall precautions -PT/OT evaluations; typically ambulates with walker at home, WC for longer distances; has been quite weak and deconditioned recently -cardiac diet as tolerated; assistance with all meals -GI ppx with PPI -DVT ppx not needed as on Xarelto -Dispo: home with home health ([facility]); lives with family, seems to have good support -Code status: DNR/DNI; discussed with daughter at bedside Attestations Medical Necessity Statement*: Patient requires hospitalization for continued treatment of pneumonia, influenza and continued IV diuresis. Time Spent in Patient Care: Greater than 35 minutes (>than 50% of time spent in counselling and/or direct pt care on unit) . Coding Level of Care Code Acute [employer] Exam Problem Focused Diagnoses Congestive heart disease I50.22 Heart failure chronicity: chronic Heart failure type: systolic Influenza A J10.1 Pneumonia J18.9 Laterality: bilateral Lung location: lower lobe of lung Pneumonia type: due to unspecified organism CKD (chronic kidney disease), stage IV N18.4
--- NOTE | 2019-05-09 09:57 | PC.SOCIAL ---
IMM Update Pg 2 of IMM given and explained to patient who verbalized understanding. Signed, dated, and timed and placed in chart. Copy provided to patient.
[2019-05-09] MEDS: budesonide 0.5 mg/2 mL Neb INHALATION ×2 (10:33→21:10)
[2019-05-09] MEDS: ipratropium-albuterol 3 mL Neb INHALATION ×3 (10:33→21:11)
[2019-05-09] MEDS: lanolin oint 7 gm 1 APPLIC TOPICAL (18:42)
--- NOTE | 2019-05-09 20:00 | PC.NURSE ---
Introduction of staff and report received, aidet.
[2019-05-09] MEDS: ALPRAZolam 0.25 mg Tablet PO (21:04)
[2019-05-09] MEDS: TRAMadol 50 mg Tablet PO (22:07)
[2019-05-10] VITALS (12 sets, daily range): BP systolic 128–195; BP diastolic 45–84; PULSE 54–78; RESP 16–20; TEMP 36.5–37; O2SAT 91–100
[2019-05-10] MEDS: piperacillin-tazobactam 3.375 GM in sodium chloride 0.9% (plus) 50 ML IV (02:07)
[2019-05-10] MEDS: bumetanide 0.25 mg/mL SDV 10 mL 1 MG IV (04:23)
[2019-05-10 06:38] LABS: Alanine Aminotransferase 87 U/L (0-33); Albumin Level 2.6 g/dL (3.5-5.2); Alkaline Phosphatase 95 IU/L (35-105); Anion Gap 13.6 (5-19); Aspartate Amino Transferase 51 U/L (0-32); Blood Urea Nitrogen 19 mg/dL (8-23); Calcium 8.7 mg/dL (8.5-10.5); Carbon Dioxide 35 mmol/L (22-29); Chloride 100 mmol/L (98-107); Globulin 3.2 g/dL (1.3-4.6); Glucose 87 mg/dL (65-115); Sodium 146 mmol/L (136-145); Total Bilirubin 0.7 mg/dL (0.15-1.2); Total Protein 5.8 g/dL (6.6-8.7)
[2019-05-10 07:11] LABS: Ferritin 229 ng/mL (15-150); Iron 56 ug/dL (37-145)
[2019-05-10 07:16] LABS: Potassium 2.6 mmol/L (3.5-5.1)
[2019-05-10] MEDS: ipratropium-albuterol 3 mL Neb INHALATION ×2 (07:44→21:28)
[2019-05-10] MEDS: budesonide 0.5 mg/2 mL Neb INHALATION ×2 (07:44→21:28)
--- NOTE | 2019-05-10 08:41 | P.PN_ITS ---
Subjective Subjective: Interval history: AM labs noted, renal function improving, replace K. Iron levels appropriate. Had 400 mL urine output overnight. Will switch to oral antibiotics and diuretics. Patient seen and examined, daughter at bedside, is in very good spirits today and reports feeling very well. Improved appetite and oral intake today, has been able to have several bowel movements so we will discontinue bowel regimen. Will resume her Coreg. Medications: Reviewed: Yes Medication Review Details: Current Medications Generic Name Dose Route Start Last Admin Trade Name Freq PRN Reason Stop Dose Admin Acetaminophen 650 mg 05/06/19 13:52 05/07/19 18:03 Tylenol PO 650 mg Q6H PRN Administration Mild/Mod Pain Or Temp >/= 101 Albuterol/Ipratrop ium 3 ml 05/06/19 13:52 05/10/19 07:44 Duoneb INHALATION 3 ml Q6H PRN Administration SHORTNESS OF FILIPPO TH Alprazolam 0.25 mg 05/06/19 21:00 05/09/19 21:04 Xanax PO 0.25 mg BEDTIME NEISHA Administration Budesonide 0.5 mg 05/06/19 20:00 05/10/19 07:44 Pulmicort INHALATION 0.5 mg BID.RESPIRATORY S CH Administration Citalopram Hydrobr omide 10 mg 05/07/19 09:00 05/09/19 08:47 Celexa PO 10 mg DAILY NEISHA Administration Lanolin 1 applic 05/09/19 15:44 05/09/19 18:42 Lanolin Oint TOPICAL 1 dose PRN PRN Administration DRYNESS Non-Formulary 1 each 05/08/19 18:00 05/09/19 18:05 Medication (Entres to PO 1 each 97-103 Mg) BID NEISHA Administration Oseltamivir Phosph ate 75 mg 05/06/19 18:00 05/09/19 18:05 Tamiflu PO 75 mg BID NEISHA Administration Oxybutynin Chlorid e 5 mg 05/07/19 09:00 05/09/19 08:48 Ditropan Xl PO 5 mg DAILY NEISHA Administration Pantoprazole Sodiu m 40 mg 05/07/19 09:00 05/09/19 08:47 Protonix PO 40 mg DAILY NEISHA Administration Senna/Docusate Sod ium 1 tab 05/09/19 18:00 05/09/19 18:05 Senna-S PO Not Given BID NEISHA Tramadol HCl 50 mg 05/06/19 16:22 05/09/19 22:07 Ultram PO 50 mg Q6H PRN Administration MODERATE PAIN Vitals/I&O/Wt Last Vital Signs Temp 97.7 F 05/10/19 08:00 Pulse 72 05/10/19 08:00 Resp 20 H 05/10/19 08:00 BP 195/78 05/10/19 08:00 Pulse Ox 92 05/10/19 08:00 05/09/19 05/10/19 05/10/19 22:59 06:59 14:59 Intake Total 170 / 340 50 / 390 Output Total 400 / 800 Balance 170 / -60 -350 / -410 Weight last 48 hrs Weight 77.61 kg Weight 81.193 kg Physical Exam Const: COMMON NORMALS: no apparent distress and oriented x3 GENERAL APPEARANCE: cooperative and comfortable; not ill appearing ORIENTATION/CONSCIOUSNESS: Yes awake HENMT: COMMON NORMALS: normocephalic, head/scalp atraumatic, hearing grossly normal bilaterally and moist oral mucous membranes HEAD & SCALP: normocephalic and atraumatic Eye: COMMON NORMALS: PERRL, EOMs intact bilaterally and conjunctivae normal CONJUNCTIVA: Yes conjunctivae normal PUPIL: Yes PERRL Neck/C-Spine: COMMON NORMALS: full ROM GENERAL: Yes normal visual inspection and Yes trachea midline Resp: COMMON NORMALS: normal respiratory effort, no retractions, no use of accessory muscles and clear to auscultation bilaterally EFFORT & INSPECTION: Yes able to speak in complete sentences, Yes symmetric chest movement and No tachypneic AUSCULTATION: clear to auscultation bilaterally OTHER: - currently on 2 L NC Cardio: COMMON NORMALS: regular rate, regular rhythm, S1 normal heart sound, S2 normal heart sound and no murmurs RATE: regular rate RHYTHM: regular rhythm HEART SOUNDS: S1 normal, S2 normal and murmur systolic GI: COMMON NORMALS: normal to inspection, nondistended, normoactive bowel sounds, soft to palpation and non-tender PALPATION: Yes soft Extremity: COMMON NORMALS: normal to inspection, full ROM and no clubbing, cyanosis or edema; negative for no pedal edema Neuro: COMMON NORMALS: oriented x3, moves all extremities, no focal motor deficits and no sensory deficits noted Psych: COMMON NORMALS: mental status grossly normal, thought process normal, cooperative, affect normal and speech normal SPEECH: Yes normal speech THOUGHT PROCESS: normal thought process Skin: COMMON NORMALS: no rashes or lesions noted, no jaundice, no petechiae and no mottling GENERAL SKIN EXAM: no rashes or lesions noted Data : 05/09/19 05:13 05/10/19 05:42 A&P Assessment and plan (1) Congestive heart disease: -acutely decompensated CHF; unknown type though documented as diastolic; no baseline Echo available as evidenced by shortness of breath, hypoxia, elevated BNP (4459), fluid overload on chest x-ray -Echo: EF=64%, no RWMA, mild TR -received dose of Lasix in ED; on IV Bumex; better compensated clinically so will resume oral Bumex -daily weights, monitor Is & Os -telemetry monitoring -is on Entresto -hold Coreg due to acute exacaerbation -has established care with Dr. Tripp Status: Acute Qualifiers: Heart failure chronicity: chronic Heart failure type: systolic Qualified Code(s): I50.22 - Chronic systolic (congestive) heart failure Code(s): I50.9 - Heart failure, unspecified (2) Influenza A: -droplet isolation precautions -influenza A positive -on Tamiflu (day 4/5) Status: Acute Code(s): J10.1 - Influenza due to other identified influenza virus with other respiratory manifestations (3) Pneumonia: -bibasilar pneumonia on CXR; repeat imaging unchanged -on Zosyn; switch to oral antibiotics -noted resolved leukocytosis, afebrile -lactic acid-1.3 -Neb treatments -supplemental oxygen as needed Status: Acute Qualifiers: Laterality: bilateral Lung location: lower lobe of lung Pneumonia type: due to unspecified organism Qualified Code(s): J18.9 - Pneumonia, u nspecified organism Code(s): J18.9 - Pneumonia, unspecified organism (4) CKD (chronic kidney disease), stage IV: -no clear baseline Cr -continue to monitor renal function particularly with diuresis; stable -avoid nephrotoxins, renally dose meds Status: Chronic Code(s): N18.4 - Chronic kidney disease, stage 4 (severe) Additional A&P Information -Advanced age -HTN -hx of cardiomyopathy, s/p AICD -Chronic atrial fibrillation, on AC with Xarelto; currently rate controlled; d/c Amiodarone; hold coreg due to acutely decompensated CHF -Oxygen dependent COPD; 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; with mild acute exacerbation secondary to influenza and pneumonia -WYATT on CPAP qhs -Anxiety/depression; on citalopram, alprazolam PRN -OA, primarily affecting back, hips, shoulders; continue tramadol -macular degeneration; limited vision bilaterally; recently referred to ophthalmology -elevated LFTs; continue to trend; stop Amiodarone; LFTs improving after discontinuation of Amiodarone -hx of iron deficiency anemia; no clear baseline Hg but has been 8-10 during her hospital stay; iron levels appropriate -strict fall precautions -PT/OT evaluations; typically ambulates with walker at home, WC for longer dist ances; has been quite weak and deconditioned recently -cardiac diet as tolerated; assistance with all meals -GI ppx with PPI -DVT ppx not needed as on Xarelto -Dispo: home with home health ([facility]); lives with family, seems to have good support -Code status: DNR/DNI; discussed with daughter at bedside Attestations Medical Necessity Statement*: Patient requires hospitalization for optimization of medication, switched to oral diuretic and antibiotic. Time Spent in Patient Care: Greater than 35 minutes (>than 50% of time spent in counselling and/or direct pt care on unit) . Coding Level of Care Code Acute Director Decision Support for Chg Fwd Exam Problem Focused Diagnoses Congestive heart disease I50.22 Heart failure chronicity: chronic Heart failure type: systolic Influenza A J10.1 Pneumonia J18.9 Laterality: bilateral Lung location: lower lobe of lung Pneumonia type: due to unspecified organism CKD (chronic kidney disease), stage IV N18.4
[2019-05-10] MEDS: rivaroxaban 10 mg Tablet 15 MG PO (08:52)
[2019-05-10] MEDS: pantoprazole DR 40 mg Tablet PO (08:52)
[2019-05-10] MEDS: oseltamivir phosphate 75 mg Capsule PO ×2 (08:52→17:54)
[2019-05-10] MEDS: citalopram 20 mg Tablet 10 MG PO (08:53)
[2019-05-10] MEDS: oxybutynin chloride XL 5 MG TABLET PO (08:53)
[2019-05-10] MEDS: bumetanide 1 mg Tablet 2 MG PO (09:08)
[2019-05-10] MEDS: amoxicillin-clav 875-125 mg Tablet 1 TAB PO ×2 (09:08→17:54)
[2019-05-10] MEDS: lidocaine 1% INJ 20 mL 5 ML IV (09:10)
[2019-05-10] MEDS: potassium chloride premix 40 MEQ/100 ML PREMIX 25 MEQ IV ×2 (09:10→13:05)
[2019-05-10 16:53] LABS: Potassium 3.4 mmol/L (3.5-5.1)
[2019-05-10] MEDS: carvedilol 25 mg Tablet PO (17:54)
[2019-05-10] MEDS: ALPRAZolam 0.25 mg Tablet PO (21:09)
[2019-05-10] MEDS: TRAMadol 50 mg Tablet PO (21:15)
[2019-05-11] VITALS (8 sets, daily range): BP systolic 134–175; BP diastolic 67–84; PULSE 59–70; RESP 16–18; TEMP 36.4–36.9; O2SAT 86–100
[2019-05-11 06:20] LABS: Potassium 2.8 mmol/L (3.5-5.1)
[2019-05-11] MEDS: budesonide 0.5 mg/2 mL Neb INHALATION (07:50)
[2019-05-11] MEDS: ipratropium-albuterol 3 mL Neb INHALATION (07:50)
--- NOTE | 2019-05-11 08:06 | PM.DCS ---
Discharge Providers Date of Admission: 05/06/19 11:29 Date of Discharge: May 11, 2019 Attending Provider at Admission: Debra Chávez MD Attending Provider at Discharge: Debra Chávez MD Primary Care Provider: Alexandra Pabon DO Diagnoses at Discharge Discharge Diagnosis (1) Congestive heart disease: Status: Acute Problem details: -acutely decompensated diastolic CHF; unknown type though documented as diastolic; no baseline Echo available as evidenced by shortness of breath, hypoxia, elevated BNP (4459), fluid overload on chest x-ray -Echo: EF=64%, no RWMA, mild TR -received dose of Lasix in ED; off IV Bumex; better compensated clinically so resumed oral Bumex -daily weights, monitor Is & Os -telemetry monitoring -is on Entresto -hold Coreg due to acute exacaerbation -has established care with Dr. Tripp Qualifiers: Heart failure chronicity: acute on chronic Heart failure type: diastolic Qualified Code(s): I50.33 - Acute on chronic diastolic (congestive) heart failure (2) Influenza A: Status: Acute Problem details: -droplet isolation precautions -influenza A positive -on Tamiflu (day 07/30) (3) Pneumonia: Status: Acute Problem details: -bibasilar pneumonia on CXR; repeat imaging unchanged -on Zosyn; switched to oral antibiotics -noted resolved leukocytosis, afebrile -lactic acid-1.3 -Neb treatments -supplemental oxygen as needed Qualifiers: Laterality: bilateral Lung location: lower lobe of lung Pneumonia type: due to unspecified organism Qualified Code(s): J18.9 - Pneumonia, unspecified organism (4) CKD (chronic kidney disease), stage IV: Status: Chronic Problem details: -no clear baseline Cr -continue to monitor renal function particularly with diuresis; stable -avoid nephrotoxins, renally dose meds Other Information Additional DC diagnoses/information: -Advanced age -HTN -hx of cardiomyopathy, s/p AICD -Chronic atrial fibrillation, on AC with Xarelto; currently rate controlled; d/c Amiodarone; hold coreg due to acutely decompensated CHF -Oxygen dependent COPD; 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; with mild acute exacerbation secondary to influenza and pneumonia -WYATT on CPAP qhs -Anxiety/depression; on citalopram, alprazolam PRN -OA, primarily affecting back, hips, shoulders; continue tramadol -macular degeneration; limited vision bilaterally; recently referred to ophthalmology -elevated LFTs; continue to trend; stop Amiodarone; LFTs improving after discontinuation of Amiodarone -hx of iron deficiency anemia; no clear baseline Hg but has been 8-10 during her hospital stay; iron levels appropriate Reason for Visit Reason for Visit: Reason For Visit: Short of breath Hospital Course Hospital Course: Patient was admitted to the medical surgical floor and started on empiric antibiotic treatment as well as Tamiflu for treatment of influenza A. She was placed on droplet isolation precautions. She was also on IV diuresis due to noted decompensated CHF. She was maintained on supplemental oxygen which was gradually weaned down to her baseline of 2 L nasal cannula. She is currently euvolemic and has been switched to oral diuretics, currently on Bumex at home dose of 2 mg daily. She has required some replacement of potassium secondary to diuresis. She has completed her treatment course for influenza. She has been switched to oral antibiotics which she will need to continue on discharge for an additional 5 days. She was noted to be anemic though hemoglobin was monitored, iron stores were checked and found to be appropriate. She did not require transfusion of any blood products during her hospital stay. Echo was done as no baseline was available on record showing an ejection fraction of 64%. She was found to have elevated liver function tests so I discontinued her amiodarone with noted improvement in her labs. She has remained in sinus rhythm with heart rate controlled throughout her hospital stay. She is to continue to follow-up with Dr. Tripp as an outpatient as well as her primary care physician within 1 week. Due to her oxygen requirement, she had a home oxygen evaluation done prior to discharge, qualifies for 2 L NC, appropriate DME ordered. Discharge Summary: -Patient to follow up with primary care physician within 1 week -Patient to continue to follow up with Dr. Tripp as scheduled Physical Exam Const: COMMON NORMALS: no apparent distress and oriented x3 GENERAL APPEARANCE: cooperative and comfortable; not ill appearing ORIENTATION/CONSCIOUSNESS: Yes awake HENMT: COMMON NORMALS: normocephalic, head/scalp atraumatic, hearing grossly normal bilaterally and moist oral mucous membranes HEAD & SCALP: normocephalic and atraumatic Eye: COMMON NORMALS: PERRL, EOMs intact bilaterally and conjunctivae normal CONJUNCTIVA: Yes conjunctivae normal PUPIL: Yes PERRL Neck/C-Spine: COMMON NORMALS: full ROM GENERAL: Yes normal visual inspection and Yes trachea midline Resp: COMMON NORMALS: normal respiratory effort, no retractions, no use of accessory muscles and clear to auscultation bilaterally EFFORT & INSPECTION: Yes able to speak in complete sentences, Yes symmetric chest movement and No tachypneic AUSCULTATION: clear to auscultation bilaterally OTHER: -currently on 2 L NC Cardio: COMMON NORMALS: regular rate, regular rhythm, S1 normal heart sound, S2 normal heart sound and no murmurs RATE: regular rate RHYTHM: regular rhythm HEART SOUNDS: S1 normal, S2 normal and murmur systolic GI: COMMON NORMALS: normal to inspection, nondistended, normoactive bowel sounds, soft to palpation and non-tender INSPECTION: Yes central obesity PALPATION: Yes soft Extremity: COMMON NORMALS: normal to inspection, full ROM and no clubbing, cyanosis or edema; negative for no pedal edema OTHER: -noted trace pitting edema of bilateral LE, non-pitting edema around both ankles Neuro: COMMON NORMALS: oriented x3, moves all extremities, no focal motor deficits and no sensory deficits noted Psych: COMMON NORMALS: mental status grossly normal, thought process normal, cooperative, affect normal and speech normal SPEECH: Yes normal speech THOUGHT PROCESS: normal thought process Skin: COMMON NORMALS: no rashes or lesions noted, no jaundice, no petechiae and no mottling GENERAL SKIN EXAM: no rashes or lesions noted Discharge Data Data Completed and Pending: Completed Studies During Hospitalization Category Date Time Status XR chest 1V florencio ble 59943 Routine Exams 05/08/19 09:27 Completed XR chest 1V florencio ble 56602 Urgent Exams 05/06/19 09:00 Completed CV echo complete* [id number] Routine Ultrasound 05/07/19 06:00 Completed Pending at discharge Category Date Time Status Blood Culture Sta t Lab 05/06/19 09:08 Results Labs from last 24 hours 05/11/19 05/10/19 05:05 16:10 Potassium 2.8 L* 3.4 L Vitals: Last Vital Signs Temp 98.5 F 05/11/19 04:00 Pulse 70 05/11/19 07:57 Resp 18 05/11/19 07:57 BP 134/67 05/11/19 04:00 Pulse Ox 99 05/11/19 07:57 Discharge Plan Discharge Patient Disposition: Home Health Service Condition: Stable Prescriptions: New amoxicillin-pot clavulanate 875-125 mg Tablet 1 tab PO BID 5 Days Qty: 10 RF: 0 potassium chloride 20 mEq tablet extended release 20 meq PO DAILY 30 Days Qty: 30 RF: 0 Continued citalopram 10 mg tablet 10 mg PO DAILY RF: 0 omeprazole 20 mg capsule,delayed release(DR/EC) 20 mg PO DAILY RF: 0 Entresto 97-103 mg tablet 1 tab PO BID RF: 0 oxybutynin chloride 5 mg tablet 5 mg PO DAILY RF: 0 magnesium 250 mg tablet 250 mg PO DAILY RF: 0 Vitron-C 65 mg iron- 125 mg tablet,delayed release (DR/EC) 1 tab PO DAILY RF: 0 cranberry 400 mg capsule 400 mg PO DAILY RF: 0 omega 8-phj-fns-fish oil [Fish Oil] 1,000 mg (120 mg-180 mg) capsule 1 cap PO DAILY RF: 0 acetaminophen [Tylenol 8 Hour] 650 mg tablet extended release 650 mg PO Q12H RF: 0 Symbicort 80-4.5 mcg/actuation HFA aerosol inhaler 2 puff INHALATION BID RF: 0 albuterol sulfate 1.25 mg/3 mL solution for nebulization 1.25 mg INHALATION Q4H PRN (Reason: Shortness Of Breath) RF: 0 alprazolam 0.25 mg tablet 0.25 mg PO DAILY Qty: 30 RF: 0 Xarelto 15 mg tablet 15 mg PO DAILY Qty: 30 RF: 0 tramadol 50 mg tablet 50 mg PO Q6H PRN (Reason: pain) Qty: 30 RF: 0 carvedilol 25 mg tablet 25 mg PO BID Qty: 60 RF: 0 bumetanide 2 mg tablet 2 mg PO DAILY 30 Days Qty: 30 RF: 0 Discontinued amiodarone 200 mg tablet 200 mg PO DAILY Qty: 30 RF: 0 Discharge Orders: Discharge Order (Routine); Ordered 05/11/19 Ordered By: Debra Chávez Other Ambulatory Orders: DME: Oxygen (Order) Location: None Selected Ordered By: Debra Chávez Referrals: [facility] [place] [facility] ([facility]) [Outside] Dwight Glass MD [Family Provider] - None Alexandra Pabon DO [Primary Care Provider] - 4-7 days (Post-hospital discharge. ) Discharge Diet: Cardiac Discharge Activity: Resume usual activity and Oxygen as instructed Discharge Attestations Time Spent in Discharge Care*: greater than 30 min Specific Discharge Activities: Specific discharge activities: educating patient, educating and/or supporting family/caregiver, discussing with rn case management/social workers/dc planners, documenting/other paperwork and evaluating patient/reviewing data Status at Discharge: Cognitive status at discharge: cognitively intact, Behavioral status at discharge: cooperative, Functional status at discharge: uses cane/walker Overall status at discharge: patient is back to baseline Quality Metrics Clinical Quality Measures During this hospital stay, did patient experience: None Coding Level of Care Code Acute Wooden Frame Builder for Geoffg Fwd Exam Problem Focused Diagnoses Congestive heart disease I50.33 Heart failure chronicity: acute on chronic Heart failure type: diastolic Influenza A J10.1 Pneumonia J18.9 Laterality: bilateral Lung location: lower lobe of lung Pneumonia type: due to unspecified organism CKD (chronic kidney disease), stage IV N18.4
[2019-05-11] MEDS: carvedilol 25 mg Tablet PO ×2 (09:28→17:54)
[2019-05-11] MEDS: oseltamivir phosphate 75 mg Capsule PO ×2 (09:28→17:54)
[2019-05-11] MEDS: bumetanide 1 mg Tablet 2 MG PO (09:28)
[2019-05-11] MEDS: oxybutynin chloride XL 5 MG TABLET PO (09:28)
[2019-05-11] MEDS: rivaroxaban 10 mg Tablet 15 MG PO (09:28)
[2019-05-11] MEDS: amoxicillin-clav 875-125 mg Tablet 1 TAB PO ×2 (09:28→17:54)
[2019-05-11] MEDS: pantoprazole DR 40 mg Tablet PO (09:28)
[2019-05-11] MEDS: citalopram 20 mg Tablet 10 MG PO (09:28)
[2019-05-11] MEDS: potassium chloride premix 40 MEQ/100 ML PREMIX 25 MEQ IV ×2 (09:29→13:39)
[2019-05-11] MEDS: lidocaine 1% INJ 20 mL 5 ML IV (09:29)
--- NOTE | 2019-05-11 09:31 | PC.SOCIAL ---
IMM Update PG 2 of IMM given and explained to patient who verbalized understanding. Signed, dated, and timed, and placed in chart. Copy provided to patient.
[2019-05-11] MEDS: TRAMadol 50 mg Tablet PO (13:39)
--- NOTE | 2019-05-11 16:01 | PC.CHAP ---
Pastoral Care Encounter/Spiritual Assessment Type of Contact [] Declined mobility architect visit [] Patient/Family/Request visit [] Outpatient visit [] Follow-up visit [] Physician referral [] Code/Alert [] Routine visit [] Staff referral [] Actively dying [] Patient sleeping [] Family support [] [] Out of room [] Palliative care [] [] Receiving care in room [] Pre-surgical visit [] Trauma [] Long length of stay [] ICU visit [] Other:patient in Isolation Relational/Emotional Strength [] Patient feels connected with others/family/visitors/staff [] Distress [] Loneliness/isolation [] Abandonment Spirituality of Patient [] Person of Genie [] Attends Samaritan of their Genie [] Believes in Prayer [] Reads Bible or Amish materials [] There are Spiritual issues to be addressed Farm Operations Technical Director Interventions [] Prayer [] Active listening [] Non-anxious presence [] Spiritual/emotional support [] Crisis/trauma care [] Spiritual counseling [] Bereavement support [] Provided bereavement packet [] Provided Bible/devotional materials [] Provided toy/stuffed animal, coloring book to patient or family member [] Provided Communion [] Anointing/[place] [] Salvation [] Completed spiritual assessment [] Other: Impact on Illness or Injury [] Angry [] Fearful [] Anxious [] Often cries [] Exhaustion [] Unable to work [] Unable to attend christian [] Unable to walk/stand [] Unable to read [] Unable to drive [] Unable to eat/drink [] Unable to sleep [] Unable to be with family [] Patient intubated [] Other: Summary patient in Isolation Time spent with patient
== END 2019-05-11 19:20 | disposition home health service (06) | DRG 291 ==
LOC: ER 11:30 → MEDSURG 12:35
PROVIDERS: Admitting Provider Family Medicine; Emergency Provider Emergency Medicine Emergency Medical Services; PCP Family Medicine; Visit Provider Family Medicine
DX: I13.0 Hypertensive heart and chronic kidney disease with heart failure and stage 1 through stage 4 chronic kidney disease, or unspecified chronic kidney disease (principal); J10.00 Influenza due to other identified influenza virus with unspecified type of pneumonia; I50.21 Acute systolic (congestive) heart failure; I48.20 Chronic atrial fibrillation, unspecified; N18.4 Chronic kidney disease, stage 4 (severe); I42.9 Cardiomyopathy, unspecified; Z95.810 Presence of automatic (implantable) cardiac defibrillator; Z99.81 Dependence on supplemental oxygen; J44.9 Chronic obstructive pulmonary disease, unspecified; G47.33 Obstructive sleep apnea (adult) (pediatric); F41.9 Anxiety disorder, unspecified; Z66 Do not resuscitate; I07.1 Rheumatic tricuspid insufficiency; Z90.710 Acquired absence of both cervix and uterus
CPT/HCPCS: 12345; 36415; 71045; 80048; 80053; 82728; 83540; 83605; 83735; 83880; 84132; 85025; 87040; 87804; 93005; 93306; 94640; 96375; 97161; 97165; 97530; 99283; J0456; J0696; J1940; J2001; J2543; J3480; J3490; J7040; J7050; J7626

== ENCOUNTER 2019-05-15 11:07 | Outpatient (CLI) | payer MEDICARE, SELFPAY ==
--- NOTE | 2019-05-15 11:17 | XR_ITS ---
WS: [id number] XR chest 2V* [id number] REASON FOR EXAM: PNEUMONIA FINDINGS: Comparisons were made to May 08, 2019. Slight improvement in atelectasis in right pleu ral effusion. The heart is not enlarged there is arteriosclerotic changes seen. The left lung base is not well seen due to the overriding pacemaker which is seen in good position. There is marked degenerate changes in both shoulders. XR/XR chest 2V* 53861 IMPRESSION: Improved atelectasis effusion on the right Dual electrode pacemaker Advanced degenerate changes in both shoulders.
== END 2019-05-15 11:08 | disposition home or self-care (01) ==
LOC: RAD 11:10
PROVIDERS: PCP Family Medicine; Visit Provider Family Medicine
DX: J18.9 Pneumonia, unspecified organism (principal); J98.11 Atelectasis; Z95.0 Presence of cardiac pacemaker
CPT/HCPCS: 71046

== ENCOUNTER → 2019-05-16 14:35 | Outpatient (BNVA) | payer MEDICARE, SELFPAY | PROVIDERS: PCP Family Medicine; Visit Provider Family Medicine | DX: R94.5 Abnormal results of liver function studies (principal) | CPT/HCPCS: 80053 ==

== ENCOUNTER 2019-08-10 09:39 | Outpatient (CLI) | payer MEDICARE, SELFPAY ==
[2019-08-10 10:26] LABS: Anion Gap 14.8 (5-19); Blood Urea Nitrogen 17 mg/dL (8-23); Calcium 9.6 mg/dL (8.5-10.5); Carbon Dioxide 33 mmol/L (22-29); Chloride 97 mmol/L (98-107); Glucose 97 mg/dL (65-115); NT Pro B Type Natriuretic Pept 1720 pg/mL (0-450); Osmolality Calculated 288 mOsm/kg (285-295); Potassium 3.8 mmol/L (3.5-5.1); Sodium 141 mmol/L (136-145)
== END 2019-08-10 09:40 | disposition home or self-care (01) ==
LOC: LAB 09:43
PROVIDERS: PCP Family Medicine; Visit Provider Internal Medicine Cardiovascular Disease
DX: I50.22 Chronic systolic (congestive) heart failure (principal); R06.02 Shortness of breath
CPT/HCPCS: 80048; 83880

== ENCOUNTER → 2019-09-11 12:07 | Outpatient (BNVA) | payer MEDICARE, SELFPAY | PROVIDERS: PCP Family Medicine; Visit Provider Family Medicine | DX: N18.4 Chronic kidney disease, stage 4 (severe) (principal) | CPT/HCPCS: 80048 ==

== ENCOUNTER 2019-09-21 17:25 | Observation (INO) | payer MEDICARE, SELFPAY ==
[2019-09-21] VITALS (8 sets, daily range): BP systolic 100–155; BP diastolic 65–80; PULSE 51–78; RESP 14–20; TEMP 36.3–37; O2SAT 93–100; BMI 25.7
--- NOTE | 2019-09-21 19:16 | ANES.PREANE2 ---
Pre-Anesthetic Assessment Pre-Anesthetic Assessment: Height/Weight: Height 1.68 m Weight 72.212 kg Temp Pulse Resp BP Pulse Ox 98.6 F 70 16 151/80 100 09/21/19 18:00 09/21/19 19:06 09/21/19 19:06 09/21/19 19:06 09/21/19 19:06 Preop Diagnosis: foreign body Proposed Procedure: EGD Familial anesthetic complications: NOne Was Beta Alvaro taken within 24 hours: Yes Last intake: Food bolus 1700 Social: Social History: No alcohol and No tobacco Exam: Pre-Anes Outpt Exam: alert, oriented x 3, clear to auscultation bilaterally and regular rate & rhythm Airway: Cervical ROM: WNL MP: 2 Additional comments: missing Pulmonary: Comments: Pneumonia in april CV/HEM: CV/HEM: Afib, CHF and HTN Comments: Sick sinus syndrome w/ ICD and pacer Mitral stenosis, aortic stenosis (rheumatic) cardiomyopathy EF on echo in 05/17 64% : : Chronic renal Insufficiency Anesthetic Plan: ASA status: 4E Anesthesia: General PFSH Anesthesia PFSH: Medical History Anxiety Aortic stenosis Atrial fibrillation Cardiomyopathy Chronic back pain Chronic systolic heart failure CKD (chronic kidney disease), stage IV -no clear baseline Cr -continue to monitor renal function particularly with diuresis; stable -avoid nephrotoxins, renally dose meds Congestive heart disease -acutely decompensated diastolic CHF; unknown type though documented as diastolic; no baseline Echo available as evidenced by shortness of breath, hypoxia, elevated BNP (4459), fluid overload on chest x-ray -Echo: EF=64%, no RWMA, mild TR -received dose of Lasix in ED; off IV Bumex; better compensated clinically so resumed oral Bumex -daily weights, monitor Is & Os -telemetry monitoring -is on Entresto -hold Coreg due to acute exacaerbation -has established care with Dr. Tripp ICD (implantable cardioverter-defibrillator) in place Macular degeneration Mitral stenosis Pacemaker SSS (sick sinus syndrome) Surgical History H/O: hysterectomy S/P cardiac pacemaker procedure S/P cataract surgery S/P hernia repair S/P small bowel resection Status post total knee replacement, right Family History Other CAD (coronary artery disease) Cancer Hypertension Stroke Thyroid condition Social History Smoking and tobacco status: never smoked Alcohol intake: former Lives independently: No Household members: children Marital status: / Data Anesthesia Cardiac Studies: No Data to Display
--- NOTE | 2019-09-21 19:49 | PM.HP ---
Providers/Chief Complaint Primary Care Provider: Alexandra Pabon DO Chief Complaint: fb in throat History of Present Illness Rosa Garcia is a 83 year old female who presented to the ER this evening after she felt like food got stuck in her esophagus while having supper. She states that she had spaghetti and meatballs for supper. Her family tried Heimlich maneuver but did not have much relief of symptoms. She states that she had prior EGD with dilation in [place] about 6 years ago. Denies any chest or abdominal pain. No nausea vomiting hematemesis. Review of Systems General: Reports: 10 or more systems reviewed and unremarkable except in HPI and below Medications/Allergies Home Medications Medication Instructions Recorded Confirmed Last Taken Type acetaminophen 650 mg 650 mg PO Q12H 04/11/19 09/11/19 05/06/19 History tablet,extended release citalopram 10 mg tablet 10 mg PO DAILY tab 04/11/19 09/11/19 05/06/19 History cranberry 400 mg capsule 400 mg PO DAILY cap 04/11/19 09/11/19 05/06/19 History iron,carbonyl 65 mg-vitamin C 125 1 tab PO DAILY tab 04/11/19 09/11/19 05/05/19 History mg tablet,delayed release magnesium 250 mg tablet 250 mg PO DAILY tab 04/11/19 09/11/19 05/05/19 History omega 2-tnt-juv-fish oil 1,000 mg 1 cap PO DAILY cap 04/11/19 09/11/19 05/05/19 History (120 mg-180 mg) capsule oxybutynin chloride 5 mg tablet 5 mg PO DAILY tab 04/11/19 09/11/19 05/05/19 History sacubitril 97 mg-valsartan 103 mg 1 tab PO BID 04/11/19 09/11/19 05/06/19 History tablet budesonide-formoterol HFA 160 2 puff INHALATION BID #10.2 gm 05/30/19 09/11/19 Unknown Rx mcg-4.5 mcg/actuation aerosol inhaler albuterol sulfate 2.5 mg INHALATION QID PRN #180 vial 06/29/19 09/11/19 Unknown Rx carvedilol 25 mg tablet 25 mg PO BID #180 tab 07/04/19 09/11/19 Unknown Rx cholecalciferol (vitamin D3) 125 125 mcg PO DAILY 07/12/19 09/11/19 Unknown History mcg (5,000 unit) capsule alprazolam 0.25 mg tablet 0.25 mg PO DAILY #90 tab 08/01/19 09/11/19 Unknown Rx potassium chloride 20 mEq 20 meq PO .COMPLEX #12 tab 08/01/19 09/11/19 Unknown Rx tablet,extended release(part/cryst) bumetanide 2 mg tablet 2 mg PO DAILY 30 Days #30 tab 08/10/19 09/11/19 Unknown Rx rivaroxaban 15 mg tablet 15 mg PO DAILY #30 tab 08/10/19 09/11/19 Unknown Rx amiodarone 200 mg tablet 200 mg PO DAILY #90 tab 08/22/19 09/11/19 Unknown Rx tramadol 50 mg tablet 50 mg PO DAILY PRN #30 tab 09/11/19 09/11/19 Unknown Rx amlodipine 5 mg tablet 5 mg PO DAILY 90 Days #90 tab 09/17/19 Unknown Rx omeprazole 20 mg capsule,delayed 20 mg PO DAILY #90 cap 09/21/19 Unknown Rx release Allergies Allergy/AdvReac Type Severity Reaction Status Date / Time No Known Allergies Allergy Verified 09/11/19 11:48 PFSH Acute PFSH: Medical History Anxiety Aortic stenosis Atrial fibrillation Cardiomyopathy Chronic back pain Chronic systolic heart failure CKD (chronic kidney disease), stage IV -no clear baseline Cr -continue to monitor renal function particularly with diuresis; stable -avoid nephrotoxins, renally dose meds Congestive heart disease -acutely decompensated diastolic CHF; unknown type though documented as diastolic; no baseline Echo available as evidenced by shortness of breath, hypoxia, elevated BNP (4459), fluid overload on chest x-ray -Echo: EF=64%, no RWMA, mild TR -received dose of Lasix in ED; off IV Bumex; better compensated clinically so resumed oral Bumex -daily weights, monitor Is & Os -telemetry monitoring -is on Entresto -hold Coreg due to acute exacaerbation -has established care with Dr. Tripp ICD (implantable cardioverter-defibrillator) in place Macular degeneration Mitral stenosis Pacemaker SSS (sick sinus syndrome) Surgical History H/O: hysterectomy S/P cardiac pacemaker procedure S/P cataract surgery S/P hernia repair S/P small bowel resection Status post total knee replacement, right Family History Other CAD (coronary artery disease) Cancer Hypertension Stroke Thyroid condition Social History Smoking and tobacco status: never smoked Alcohol intake: former Lives independently: No Household members: children Marital status: / Vitals/I&O/Wt Last Vital Signs Temp 98.6 F 09/21/19 18:00 Pulse 70 09/21/19 19:06 Resp 16 09/21/19 19:06 BP 151/80 09/21/19 19:06 Pulse Ox 100 09/21/19 19:06 Weight last 48 hrs Weight 159 lb 3.2 oz Physical Exam Narrative: EXAM NARRATIVE: HEENT: Normocephalic Eye: Sclera /conjunctiva normal Respiratory and chest: Bilateral clear breath sounds on auscultation Cardiovascular: Normal S1 and S2 heart sounds Abdomen: Soft to palpation Neurological: Oriented to place person and time Skin: Intact, no lesions appreciated on gross exam A&P Assessment and plan (1) Esophageal obstruction due to food impaction: 84-year-old female with history of esophageal stricture who presents to the ER with food impaction. Plan for EGD under MAC for disimpaction of food bolus. Patient is on Xarelto which increases the risk of bleeding, but we need to proceed with EGD since patient has not been able to keep her saliva down. Status: Acute Attestations Medical Necessity Statement*: esophageal obstruction due to food impaction Coding Level of Care Code Acute Patient Service Coordinator for Chg Fwd Diagnoses Esophageal obstruction due to food impaction K22.2; T18.128A
--- NOTE | 2019-09-21 21:18 | SUR.PHASEI ---
2117 PATIENT TO PACU. RR EVEN AND UNLABORED. SPO2 96% ON RA. PATIENT RESPONSIVE TO VERBAL STIMULI. DENIES PAIN.
--- NOTE | 2019-09-21 21:59 | SUR.PHASEI ---
2134 PATIENT TO MED SURG AT THIS TIME. DENIES PAIN. ANSWERING QUESTIONS APPROPRIATELY. RR EVEN AND UNLABORED.
[2019-09-21] MEDS: pantoprazole 40 mg SDV IVP (23:24)
[2019-09-22] VITALS (8 sets, daily range): BP systolic 125–142; BP diastolic 70–72; PULSE 62–73; RESP 17–18; TEMP 36.6–36.7; O2SAT 95–96
[2019-09-22] MEDS: lactated ringers 1,000 ML 50 ML IV (01:12)
--- NOTE | 2019-09-22 05:02 | W.ED.NAVMDI ---
HPI - Nausea/Vomiting/Diarrhea General: Chief complaint: Airway/Esophagus Foreign Body Stated complaint: fb in throat Time Seen by Provider: 09/21/19 18:39 History of Present Illness: HPI Narrative: 83-year-old female presents not able to handle her own saliva secretions following eating some spaghetti and meatballs. Evidently some was trapped in her airway, her family cleared with a finger sweep maneuver and Heimlich maneuver. She still feels like there is something lower in this throat/chest. She is not able to keep liquids down. She has a history of esophageal stricture with couple of previous dilatations. She has had impaction previously MD elicited complaint: nausea and vomiting Pertinent past history: other Onset (ago): hour(s) Description of vomiting: watery Associated nausea: Yes Associated abdominal pain: No Severity: moderate Exacerbating factors: none Relieving factors: other Associated symtoms: Reports malaise and nausea; Denies anxiety, change in vision, chest pain, dizziness, dysuria, fevers/chills, headache(s) or palpitations Review of Systems Const: Reports: malaise Eyes: Denies: change in vision or blurry vision ENMT: Denies: swelling of lips/tongue, bleeding gums or change in hearing Card: Reports: irregular heart rhythm; Denies: chest pain, palpitations or edema Resp: Denies: dyspnea, productive cough, non-productive cough or wheezing GI: Reports: nausea : Denies: dysuria Musc: Reports: back pain; Denies: neck pain or joint redness Skin/Breast: Denies: rash, pruritus or erythema Neuro: Denies: headache(s), dizziness or vertigo Psych: Denies: anxiety PFS ED PFSH: Medical History (Updated 09/22/19 @ 05:14 by Richardson Chan DO) Anxiety Aortic stenosis Atrial fibrillation Cardiomyopathy Chronic back pain Chronic systolic heart failure CKD (chronic kidney disease), stage IV -no clear baseline Cr -continue to monitor renal function particularly with diuresis; stable -avoid nephrotoxins, renally dose meds Congestive heart disease -acutely decompensated diastolic CHF; unknown type though documented as diastolic; no baseline Echo available as evidenced by shortness of breath, hypoxia, elevated BNP (4459), fluid overload on chest x-ray -Echo: EF=64%, no RWMA, mild TR -received dose of Lasix in ED; off IV Bumex; better compensated clinically so resumed oral Bumex -daily weights, monitor Is & Os -telemetry monitoring -is on Entresto -hold Coreg due to acute exacaerbation -has established care with Dr. Tripp Esophageal obstruction due to food impaction ICD (implantable cardioverter-defibrillator) in place Macular degeneration Mitral stenosis Pacemaker SSS (sick sinus syndrome) Surgical History (Updated 09/21/19 @ 20:12 by Alfred Holder MD) H/O esophagogastroduodenoscopy (09/21/19) H/O: hysterectomy S/P cardiac pacemaker procedure S/P cataract surgery S/P hernia repair S/P small bowel resection Status post total knee replacement, right Family History Other CAD (coronary artery disease) Cancer Hypertension Stroke Thyroid condition Social History Smoking and tobacco status: never smoked Alcohol intake: former Lives independently: No Household members: children Marital status: / Physical Exam Const: GENERAL APPEARANCE: well developed ORIENTATION/CONSCIOUSNESS: Yes oriented to person and Yes oriented to place; not oriented to time HENMT: COMMON NORMALS: external ears normal and Normal external nose present FACE & SINUS: normal facial exam NOSE: Normal external nose present and No nasal discharge present EXTERNAL EAR: Yes external ears normal MOUTH: tongue normal THROAT: posterior oropharynx normal; no peritonsillar mass Eye: COMMON NORMALS: Equal, round and reactive pupils present, EOMs intact bilaterally and conjunctivae normal EYELID: eyelids normal CONJUNCTIVA: Yes conjunctivae normal PUPIL: Yes Equal, round and reactive pupils present Neck/C-Spine: GENERAL: No tracheal deviation Chest: COMMONS NORMALS: normal inspection of the chest CHEST: No tenderness Resp: COMMON NORMALS: clear to auscultation bilaterally EFFORT & INSPECTION: No tachypneic, No respiratory distress, No retractions, No uses accessory muscles and No tracheal deviation AUSCULTATION: clear to auscultation bilaterally, no rhonchi, no wheezes and lung sounds not diminished Cardio: RHYTHM: abnormal rhythm irregularly irregular HEART SOUNDS: no murmurs PERIPHERAL PULSES: radial pulses present GI: INSPECTION: No abdominal distension AUSCULTATION: No Hyperactive bowel sounds present and No Hypoactive bowel sounds present PALPATION: No Guarding due to palpation present (GI) and No Rigid due to palpation PERCUSSION: no dullness to percussion and no tympanic to percussion Neuro: SENSORIUM/ORIENTATION: Yes oriented to person, Yes oriented to place and No oriented to time Psych: COMMON NORMALS: mental status grossly normal Skin: COMMON NORMALS: no rashes or lesions noted GENERAL SKIN EXAM: no rashes or lesions noted Course Vital Signs: Vital signs: Vital Signs Temperature 98.0 F 09/22/19 04:00 Pulse Rate 62 09/22/19 04:00 Respiratory Rate 18 09/22/19 04:00 Blood Pressure 142/72 09/22/19 04:00 Pulse Oximetry 95 09/22/19 04:00 MDM - Nausea/Vomiting/Diarrhea MDM Narrative: Medical decision making narrative: 83-year-old mildly frail female with what appears to be an esophageal foreign body impaction. She has had esophageal stricture and dilatation in the past. We alerted surgery after her exam, and he states he will take the patient to the OR. She is anticoagulated, but has not had any bleeding. Is a history of atrial fibrillation. Her vitals are good. The OR/GI team will take the patient from the ER to outpatients for the procedure. Discharge Plan Discharge Patient Disposition: Xfer Other Clinical Impression: Esophageal obstruction due to food impaction Condition: Stable Discharge Activity: Increase activity as tolerated Discharge Date/Time: 09/21/19 20:06 Coding Level of Care Code ED Director Of Outpatient Services for Zohreh Fwjacque Exam Comprehensive
--- NOTE | 2019-09-22 09:44 | PM.PN ---
Subjective Subjective: Interval history: No issues overnight, patient keen to go home Medications: Reviewed: Yes Vitals/I&O/Wt Last Vital Signs Temp 97.9 F 09/22/19 07:46 Pulse 73 09/22/19 07:46 Resp 18 09/22/19 07:46 BP 125/70 09/22/19 07:46 Pulse Ox 96 09/22/19 07:46 09/21/19 09/22/19 09/22/19 22:59 06:59 14:59 Intake Total 0 / 0 60 / 60 Output Total 0 / 160 160 / 160 Balance 0 / -160 -160 / -160 60 / Weight last 48 hrs Weight 159 lb 3.2 oz A&P Assessment and plan (1) Esophageal obstruction due to food impaction: tolerating full liquid diet, DC home Status: Acute Attestations Medical Necessity Statement*: d/c home Coding Level of Care Code Acute Medical Claims Manager for Zohreh Lawson Diagnoses Esophageal obstruction due to food impaction K22.2; T18.128A
--- NOTE | 2019-09-22 10:42 | P.DS_ITS ---
Discharge Providers Date of Admission: 09/21/19 20:57 Date of Discharge: September 22, 2019 Attending Provider at Admission: Alfred Holder MD Attending Provider at Discharge: Alfred Holder MD Primary Care Provider: Alexandra Pabon DO Diagnoses at Discharge Discharge Diagnosis (1) Esophageal obstruction due to food impaction: Status: Acute Reason for Visit Reason for Visit: fb in throat Hospital Course Discharge Summary: This is a 83-year-old female with history of prior EGD with dilation who presented with food bolus. Patient was admitted to the hospital overnight after disimpaction of food bolus for observation. She had a little bit of bleeding after the EGD secondary to irritation from the impacted food bolus. Patient also had extravasation of succinylcholine during anesthesia induction. At the morning of discharge patient is tolerating a liquid diet and denies any chest or abdominal pain. Discharge Data Vitals: Last Vital Signs Temp 97.9 F 09/22/19 09:57 Pulse 73 09/22/19 09:57 Resp 18 09/22/19 09:57 BP 125/70 09/22/19 09:57 Pulse Ox 96 09/22/19 09:57 Discharge Plan Discharge Patient Disposition: Home, Self-Care Condition: Stable Prescriptions: Continued citalopram 10 mg tablet 10 mg PO DAILY RF: 0 Entresto 97-103 mg tablet 1 tab PO BID RF: 0 oxybutynin chloride 5 mg tablet 5 mg PO DAILY RF: 0 magnesium 250 mg tablet 250 mg PO DAILY RF: 0 Vitron-C 65 mg iron- 125 mg tablet,delayed release (DR/EC) 1 tab PO DAILY RF: 0 cranberry 400 mg capsule 400 mg PO DAILY RF: 0 omega [id number]-fish oil [Fish Oil] 1,000 mg (120 mg-180 mg) capsule 1 cap PO DAILY RF: 0 acetaminophen [Tylenol 8 Hour] 650 mg tablet extended release 650 mg PO Q12H RF: 0 cholecalciferol (vitamin D3) 125 mcg (5,000 unit) capsule 125 mcg PO DAILY RF: 0 Symbicort 160-4.5 mcg/actuation HFA aerosol inhaler 2 puff INHALATION BID Qty: 10.2 RF: 2 albuterol sulfate 2.5 mg /3 mL (0.083 %) solution for nebulization 2.5 mg INHALATION QID PRN (Reason: shortness of breath or wheezing) Qty: 180 RF: 3 carvedilol 25 mg tablet 25 mg PO BID Qty: 180 RF: 3 alprazolam 0.25 mg tablet 0.25 mg PO DAILY Qty: 90 RF: 0 potassium chloride 20 mEq tablet,ER particles/crystals 20 meq PO .COMPLEX Qty: 12 RF: 5 bumetanide 2 mg tablet 2 mg PO DAILY 30 Days Qty: 30 RF: 1 Xarelto 15 mg tablet 15 mg PO DAILY Qty: 30 RF: 1 amiodarone 200 mg tablet 200 mg PO DAILY Qty: 90 RF: 0 tramadol 50 mg tablet 50 mg PO DAILY PRN (Reason: pain) Qty: 30 RF: 2 amlodipine 5 mg tablet 5 mg PO DAILY 90 Days Qty: 90 RF: 3 omeprazole 20 mg capsule,delayed release(DR/EC) 20 mg PO DAILY Qty: 90 RF: 1 Discharge Orders: Discharge Order (Routine); Ordered 09/22/19 Ordered By: Alfred Holder Referrals: Alfred Holder MD [Physician] - 2 weeks (Call patient at home with a follow up appointment in 2 weeks. Faxed information to Clinic.) Discharge Diet: Advance as tolerated Discharge Activity: Increase activity as tolerated Patient Instructions: Foreign Body - Swallowed, Upper Gastrointestinal Endoscopy (DC) Discharge Attestations Time Spent in Discharge Care*: less than 30 min Status at Discharge: Cognitive status at discharge: cognitively intact , Behavioral status at discharge: cooperative , Quality Metrics Clinical Quality Measures During this hospital stay, did patient experience: None Coding Level of Care Code Acute Pad Extraction Tender for Chg Fwd Diagnoses Esophageal obstruction due to food impaction K22.2; T18.128A
--- NOTE | 2019-09-22 11:38 | PC.NURSE ---
Patient's left arm has some edema to arm, according to noc nurse the swelling has reduced since her admission last night. Patient rec DC instructions. 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 Patient PIID to left wrist removed intact, pressure dressing applied.
== END 2019-09-22 11:00 | disposition home or self-care (01) ==
LOC: ER 18:39 → GILAB 19:18 → MEDSURG 20:58
PROVIDERS: Admitting Provider Surgery; PCP Family Medicine; Visit Provider Surgery
PROC: 0DJ08ZZ Inspection of Upper Intestinal Tract, Via Natural or Artificial Opening Endoscopic (ICD-10-PCS; CPT 43235; principal; 2019-09-21 21:05)
DX: T18.128A Food in esophagus causing other injury, initial encounter (principal); K22.2 Esophageal obstruction; F41.9 Anxiety disorder, unspecified; I48.91 Unspecified atrial fibrillation; I13.0 Hypertensive heart and chronic kidney disease with heart failure and stage 1 through stage 4 chronic kidney disease, or unspecified chronic kidney disease; N18.4 Chronic kidney disease, stage 4 (severe); I50.22 Chronic systolic (congestive) heart failure; Z95.0 Presence of cardiac pacemaker; Z82.49 Family history of ischemic heart disease and other diseases of the circulatory system; Z79.01 Long term (current) use of anticoagulants
CPT/HCPCS: 12345; 43247; 94640; 94762; 96375; 99283; 99285; C9113; G0378; J0330; J2001; J2405; J2704; J3010; J3490; J7030; J7611